=== PATIENT | female | born 1930 | race Caucasian/White ===

== ENCOUNTER → 2017-02-17 | Outpatient (CLI) | payer OTHER, BC ==
[~2017-02-17] MED LIST: GADOBUTROL 10 ML VIAL IVP ONE; IOPAMIDOL (ISOVUE 370) 100 ML BTL IV ONE
== END ==
LOC: FIMAGING 10:32
PROVIDERS: ATTEND Psychiatry & Neurology Neurology
DX: G93.89 Other specified disorders of brain (principal); I61.8 Other nontraumatic intracerebral hemorrhage; R13.10 Dysphagia, unspecified; Z86.73 Personal history of transient ischemic attack (TIA), and cerebral infarction without residual deficits; Z85.05 Personal history of malignant neoplasm of liver
CPT/HCPCS: 70498; 70553; A9585; Q9967

== ENCOUNTER 2017-03-22 17:32 | Inpatient (IN) | payer OTHER, BC ==
--- NOTE | 2017-03-22 18:48 | EDPHY ---
H & P Stated Complaint: pt fell on vacation in [place] th/seen at [facility] n[facility]/pain chestand back - Personal History Current Tetanus/Diphtheria Vaccine: Unsure - Medical/Surgical History Hx Asthma: No Hx Chronic Respiratory Disease: No Hx Diabetes: No Hx Cardiac Disease: No Hx Renal Disease: No Hx Cirrhosis: No Hx Alcoholism: No Hx HIV/AIDS: No Hx Splenectomy or Spleen Trauma: No Other PMH: HTN, glaucoma, balance problems, "liver carcinoid" - Social History Smoking Status: Never smoked Constitutional: Initial Vital Signs Temperature (C) 36.9 C 03/22/17 17:42 Heart Rate 60 03/22/17 17:42 Respiratory Rate 18 03/22/17 17:42 Blood Pressure 161/79 H 03/22/17 17:42 O2 Sat (%) 94 03/22/17 17:42 O2 Delivery Mode Nasal Cannula O2 (L/minute) 2 Allergies/Adverse Reactions: Penicillins Allergy (Unknown, Verified 03/22/17 17:41) Sulfa (Sulfonamide Antibiotics) Allergy (Unknown, Verified 03/22/17 17:41) Home Medications: Medication Instructions Recorded Losartan/Hydrochlorothiazide 1 each PO HS 04/24/14 [Losartan-Hctz 100-25 mg Tab] amLODIPine BESYLATE [Norvasc 5 mg 5 mg PO HS 04/24/14 (*)] Dorzolamide/Timolol [Cosopt (*)] 1 drops EACHEYE BID 08/09/16 Ibuprofen [Motrin (*)] 200 mg PO DAILY PRN 08/09/16 Latanoprost 0.005% [Xalatan 0.005% 1 drops EACHEYE HS 08/09/16 (*)] oxyCODONE IR [Oxycodone Ir (*)] 5 mg PO Q3HRS PRN #30 tab 08/10/16 Medical Decision Making - Diagnostics Imaging Results: Imaging Impressions Chest CT 03/22/17 18:46 Impression: 1. Stable fibrotic bands at the lung bases. 2. Numerous large lesions within the liver similar to prior CT study. 3. Moderate anterior wedge compression fracture superior endplate of T5 and may be acute. There is accentuation of the anterior kyphosis mid thoracic spine. 4. Stable mild compression superior endplate of T12. 5. Partially healed rib fractures on the left. Findings discussed with Jose Lehman MD at 20:01 hour, 03/22/2017. Imaging: Discussed imaging studies w/ call center analyst Radiologist ED Course/Re-evaluation: CHIEF COMPLAINT: Chest/back pain HISTORY OF PRESENT ILLNESS: This patient is an 86 year old female complaining of chest pain secondary to a mechanical fall last , six days ago while in [place]. She slipped and fell last before her daughter's wedding, and struck her chest and possibly her back. She had chest and lower back pain initially, and visited a hospital in [place], [place]. Chest x-ray there was negative for acute processes , and she was discharge home with a clinical impression of contusion to chest wall. Yesterday her chest began to hurt more and she feels her upper back has become significantly painful as well. She denies other trauma or complaints. No shortness of breath, fever, vomiting, or other associated symptoms. REVIEW OF SYSTEMS: A 10 point review of systems was performed and is negative with the exception of the elements mentioned in the history of present illness. PHYSICAL EXAM: General Appearance: Alert, well hydrated, appropriate, and non-toxic appearing. Head: Atraumatic without scalp tenderness or obvious injury Eyes: Pupils equal, round, reactive to light and accommodation, EOMI, no trauma , no injection. Ears: Clear bilaterally, no perforation, normal landmarks Nose: Atraumatic, no rhinorrhea, clear. Throat: There is no erythema or exudates, no lesions, normal tonsils, mucus membranes moist. Neck: Supple, non-tender, no lymphadenopathy. Respiratory: No retractions, no distress, no wheezes, and no accessory muscle use. Lungs are clear to auscultation bilaterally. Cardiovascular: Regular rate and rhythm, no murmurs, rubs, or gallops. Good capillary refill all extremities. Gastrointestinal: Abdomen is soft, non-tender, non-distended, no masses, no rebound, no guarding, no peritoneal signs. Musculoskeletal: Tenderness to mid-thoracic spine area. Tenderness to left chest , left side back. Normal active ROM of all extremities. Neurological: Alert, appropriate, and interactive. Nonfocal neuro exam. Skin: No rashes, good turgor, no nodules on palpation. PAST MEDICAL/SURGICAL HISTORY: Hypertension, glaucoma, balance problems, carcinoid liver SOCIAL HISTORY: . at bedside. DIFFERENTIAL DIAGNOSIS: MEDICAL DECISION MAKING: This patient is an 86 year old female presenting with pain and tenderness to her left side chest and back secondary to a fall last , six days ago. She was evaluated at that time, and chest x-ray was negative for acute processes. Plan to reassess with CT chest with contrast to further evaluate the cause of the patient's discomfort. Plan to administer 0.5mg IV Dilaudid for pain management. CT pending. Administered 0.5mg IV Dilaudid for continued pain management. 20:[address] Hall, radiologist. CT chest shows T5 compression fracture. Consulted with Dr. Back, neurosurgeon. Reassessed patient. She is in quite a bit of pain, and unable to perform her normal functions. I offered admission for pain management and continued management of her T5 fracture. She and her agree with this plan. Dr. Elaine accepts admission to med/surg for pain management, T5 compression fracture. - Data Points Laboratory Results: 03/22/17 18:14 POC Hgb 15.3 gm/dL gm/dL (12.6-16.3) POC Hct 45 % % (38-47) POC Sodium 131 mEq/L L mEq/L (134-144) POC Potassium 3.4 mEq/L mEq/L (3.3-5.0) POC Chloride 91 mEq/L L mEq/L (97-110) POC BUN 15 mg/dL mg/dL (7-23) POC Creatinine 0.6 mg/dL mg/dL (0.6-1.0) POC Glucose 85 mg/dL mg/dL (70-100) Medications Given: Discontinued Medications Hydromorphone HCl (Dilaudid) 0.5 mg IVP EDNOW ONE Stop: 03/22/17 19:05 Last Admin: 03/22/17 19:05 Dose: 0.5 mg Hydromorphone HCl (Dilaudid) 0.5 mg IVP EDNOW ONE Stop: 03/22/17 20:56 Last Admin: 03/22/17 21:00 Dose: 0.5 mg Point of Care Test Results: 03/22/17 18:14 POC Sodium 131 L POC Potassium 3.4 POC Chloride 91 L POC BUN 15 POC Creatinine 0.6 POC Glucose 85 Departure - Departure Disposition: [facility] Inpatient Acute Clinical Impression: Traumatic compression fracture of T5 thoracic vertebra Qualifiers: Encounter type: initial encounter Fracture type: closed Qualified Code(s): S22.050A - Wedge compression fracture of T5-T6 vertebra, initial encounter for closed fracture Condition: Fair Referrals: NONE *PRIMARY CARE P,. [Primary Care Provider] - As per Instructions Report Scribed for: Jose Lehman Report Scribed by: Alissa Starkey Date of Report: 03/22/17 Time of Report: 20:29
[2017-03-22] MEDS ORDERED: IOPAMIDOL (ISOVUE-300) 100 ML BTL ONE (18:53)
[2017-03-22] MEDS ORDERED: HYDROmorphONE/DILAUDID 1 MG/ML SYR ONE (19:00)
[2017-03-22] MEDS ORDERED: HYDROmorphONE/DILAUDID 1 MG/ML SYR IVP ONE ×2 (19:04→20:55)
[2017-03-22] MEDS ORDERED: BISACODYL 10 MG SUPP PR PRN (21:34)
[2017-03-22] MEDS ORDERED: LACTULOSE 20 GM/30 ML UDCUP PO PRN (21:34)
[2017-03-22] MEDS ORDERED: POLYETHYLENE GLYCOL 3350 17 GM PKT PO PRN (21:34)
[2017-03-22] MEDS ORDERED: ONDANSETRON 4 MG/2 ML VIAL IVP PRN (21:34)
[2017-03-22] MEDS ORDERED: ACETAMINOPHEN 325 MG TAB PO PRN (21:34)
[2017-03-22] MEDS ORDERED: MAGNESIUM HYDROXIDE 30 ML UDCUP PO PRN (21:34)
[2017-03-22] MEDS ORDERED: ONDANSETRON DISINTEGRATING 4 MG TAB PO PRN (21:34)
[2017-03-22] MEDS ORDERED: oxyCODONE IR 5 MG TAB PO PRN (21:35)
[2017-03-22] MEDS ORDERED: HYDROmorphONE/DILAUDID 1 MG/ML SYR IVP PRN (21:36)
[2017-03-22] MEDS ORDERED: TEARS/DEXTRAN 70/HYPROMELLOSE 15 ML OPHT.BTL EACHEYE PRN (22:31)
[2017-03-22] MEDS: ACETAMINOPHEN 500 MG TAB PO SCH (22:36)
[2017-03-22] MEDS ORDERED: NS 1,000 ML IV SCH (22:45)
--- NOTE | 2017-03-22 23:08 | GHP ---
[f rep st] HISTORY AND PHYSICAL DATE OF ADMISSION: 03/22/2017 CHIEF COMPLAINT: Back pain, T5 compression fracture. HISTORY OF PRESENT ILLNESS: Patient is an 86-year-old female, who was on vacation in [place] last we ek and suffered a fall when getting up to use the restroom in the middle of the night. She said she swung her feet over and the bed was higher than her normal bed and fell on her back. She instantly had pain in the upper and lower portion of her back, as well as her chest on the left side. She we nt to the emergency room there and had an x-ray done showing no broken ribs. She was prescribed Per cocet, which has been not helping the pain very much. She no longer has lower back pain, but the up per back pain is sharp 10/10, and that is why she came to the emergency room. She has been constipa wojciech for a week. Denies any overt weakness. No incontinence. Does complain of left-sided chest chente n. Does not change with inspiration, but worse with movement. No shortness of breath. REVIEW OF SYSTEMS: I completed a 10-point review of systems, negative except as noted in HPI. PAST MEDICAL HISTORY: 1. 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 2. Left breast biopsy negative for malignancy. 3. Hypertension. 4. Glaucoma. PAST SURGICAL HISTORY: 1. Appendectomy. 2. Left breast biopsy. SOCIAL: Lives at the [facility], is , has an occasional glass of wine with dinner. No tobacco or illicit's. FAMILY HISTORY: Father with emphysema. HOME MEDICATIONS: Blink eye drops, [place] 1 tab q.6 hours p.r.n., Tylenol as needed, Percocet, losar acosta hydrochlorothiazide 100-25 mg tab, Latanoprost eye drops, Cosopt eye drops, Norvasc 5 mg daily. ALLERGIES: Penicillin and sulfa. PHYSICAL EXAMINATION: VITAL SIGNS: Temperature 37.1, blood pressure 140/77, heart rate 50s, respir ations 16, 96% on 2 L. GENERAL: The patient is lying in bed with eye mask over eyes in no acute di stress. HEENT: PERRLA. EOMI. Oropharynx clear. CV: Bradycardic, but regular. No murmurs, gall ops, rubs. LUNGS: Clear to auscultation bilaterally. ABDOMEN: Soft, nontender, nondistended. Po sitive bowel sounds. : No suprapubic tenderness. MUSCULOSKELETAL: 5/5 upper and lower extremit y strength. NEURO: 2 through 12 intact. PSYCH: Alert and oriented x3. CT chest stable fibrotic bands at the lung basis. Numerous large lesions within the liver similar t o prior study. Moderate anterior wedge compression fracture at endplate of T5. There is accentuati on of the anterior kyphosis in the mid thoracic spine. Stable mild compression superior endplate of T12. Partially healed rib fractures on the left. ASSESSMENT AND PLAN: 1. Acute back pain secondary to T5 compression fracture, as well as a small T12 fracture. Pain imp roved with Dilaudid in the emergency room. Will schedule Tylenol and provide oxycodone, as well as a small dose of Dilaudid given age. Neuro surg to evaluate patient in the morning. 2. Will have physical therapy, occupational therapy evaluate. 3. Left-sided chest pain. Does have evidence of a healing rib fracture on the left. Creatinine st able. Can try Toradol. 4. Hypovolemic hyponatremia: The patient has not been eating and drinking much. Will hold her hyd rochlorothiazide and give back a little bit of fluid. 5. Hypertension. Resume Norvasc. Hold hydrochlorothiazide. 6. Mildly low sodium. 7. Glaucoma. Continue home medications. 8. Diet: Regular. 9. Deep venous thrombosis prophylaxis sequential compression devices. 10. Disposition: Patient warrants inpatient admission given acute back pain warranting IV pain con trol, physical therapy and neurosurgical evaluation. /[id number]/MODL
[2017-03-23] MEDS: IBUPROFEN 200 MG TAB PO PRN (04:55)
[2017-03-23 05:30] LABS: ANION GAP 7 mEq/L (8-16); CALCIUM 9.7 mg/dL (8.5-10.4); CARBON DIOXIDE 28 mEq/l (22-31); CHLORIDE 98 mEq/L (97-110); CREATININE 0.7 mg/dL (0.6-1.0); GLOMERULAR FILTRATION RATE > 60; GLUCOSE 85 mg/dL (70-100); SODIUM 133 mEq/L (134-144)
[2017-03-23] MEDS: SENNOSIDES/DOCUSATE SODIUM TAB PO SCH ×2 (08:16→20:48)
[2017-03-23] MEDS: ACETAMINOPHEN 500 MG TAB PO SCH ×3 (08:28→22:03)
[2017-03-23] MEDS: DORZOLAMIDE/TIMOLOL 10 ML OPHT.BTL EACHEYE SCH ×2 (08:29→20:48)
--- NOTE | 2017-03-23 10:09 | HOSPPROG ---
Hospitalist Progress Note Assessment/Plan: Patient is an 86-year-old female who suffered a fall while getting to the restroom. She fell on her back. She instantly had pain in the upper lower portion of her back. A a CT was performed which showed a moderate anterior wedge compression fracture at endplate of T5. There is accentuation of the anterior kyphosis in the mid thoracic spine. She has a stable mild compression superior endplate of T12. Today is my 1st encounter with the patient. Chart reviewed. The plan is for her to get an MRI today for further evaluation. Appreciate neurosurgery * T5 compression fracture/small T12 fracture MRI pending patient is concern about a kyphoplasty/ her neighbor had a bad outcome but may consider it after the MRI is done/ would like to discuss more w neurosurgery * acute back pain due to this likely would not tolerate a brace PT to see if they can mobilize her trial of Lidoderm patches * left-sided chest discomfort may be referral pain from the back * hyponatremia due to hypovolemia Sodium level improved with holding hydrochlorothiazide * hypertension 121/56 * glaucoma eye gtts *Plan : await MRI results/ she and her , Paul, would like to discuss further w neurosurgery Subjective: Lorri is in no pain as long as she's not moving. Objective: Vital Signs Temp Pulse Resp BP Pulse Ox 36.3 C 70 16 121/56 H 99 03/23/17 08:39 03/23/17 08:39 03/23/17 08:39 03/23/17 08:39 03/23/17 08:39 Laboratory Results 03/23/17 04:55 03/22/17 03/23/17 03/24/17 05:59 05:59 05:59 Intake Total 350 Output Total 400 Balance -50 - Physical Exam Constitutional: uncomfortable Eyes: PERRL Ears, Nose, Mouth, Throat: hearing normal Cardiovascular: regular rate and rhythym Respiratory: no respiratory distress Skin: warm Musculoskeletal: muscular tenderness (upper back) Neurologic: AAOx3 Psychiatric: interacting appropriately, not anxious ICD10 Worksheet Patient Problems: Problems Problem Status Onset Traumatic compression fracture of T5 thoracic vertebra Acute Abdominal pain Acute
--- NOTE | 2017-03-23 11:30 | GCON ---
[f rep st] CONSULTATION NEUROSURGERY CONSULTATION NOTE. DATE OF CONSULTATION: 03/23/2017. This patient was seen at [facility] on the 3rd floor by Dr Rousseau at approximately 7 a.m. CHIEF COMPLAINT: Back pain after a fall. HISTORY OF PRESENT ILLNESS: This is an 86-year-old female who presented with worsening back pain yesterday to the [facility] Emergency Room. She was on vacation in [place] last week when she went to go sit on her bed in her hotel room and missed the bed and then fell down onto the floor. She states that she immediately had worsening back pain after this. She denied any leg pain after her fall. She denied any numbness, tingling or weakness in her legs. She denied any loss of bowel or bladder control or saddle anesthesia after the fall. The patient went to the emergency room and did have an x-ray done showing no broken ribs. She was prescribed Percocet which has not been helping the pain very much. The patient states that her lower back pain has dissipated but her upper back pain is sharp and it is severe with any movement. This pain also radiates around to the front of her chest at times. This is why she came to the emergency room yesterday. The patient denies any shortness of breath, any chest pain, any fever or chills. REVIEW OF SYSTEMS: All pertinent positive and negative review of systems were as stated in the HPI. PAST MEDICAL HISTORY: History of carcinoid tumor, history of left breast biopsy negative for malignancy. History of hypertension and glaucoma. PAST SURGICAL HISTORY: Significant for an appendectomy and left breast biopsy. SOCIAL HISTORY: The patient lives at the [facility]. She is . She has an occasional glass of wine. She denies any tobacco use or any other illicit drug use. FAMILY HISTORY: Significant for emphysema in her father. HOME MEDICATIONS: Include [place] 1 tab q.6 hours p.r.n. pain. Tylenol as needed. Percocet, losartan, hydrochlorothiazide, latanoprost eye drops, Cosopt eye drops, Norvasc 5 mg daily. OBJECTIVE: VITAL SIGNS: Blood pressure 141/55, heart rate 56, respiratory rate 16, O2 saturation 94% on room air. Temperature 36.8 degrees Celsius. HEENT: Head is normocephalic, atraumatic. Pupils are equal and react to light and accommodation. Extraocular muscles are intact. There is no facial droop. Patient is conversing appropriately. Speech is fluent. She is alert and oriented x3. NECK: Soft, supple and full range of motion. RESPIRATORY: The patient has normal work of breathing. ABDOMINAL: There is no guarding. NEURO: Cranial nerves 2-12 are grossly intact. Tongue protrudes in midline. Palate rises symmetrically. Uvula is midline. Accessory muscles are 5/5 and equal in strength. Sensation is intact to light touch throughout the normal dermatomal distribution of the body. Motor, bilateral upper extremities are 5/5 and equal in strength in all muscle groups including deltoids, biceps, triceps, wrist extensors, flexors, interossei and audio video technician. It is negative for Ball's. Bilateral lower extremities are 5/5 and equal in strength including all muscle groups including quadriceps, hamstrings, dorsiflexion, plantar flexion, and EHL. Sensation is intact over the normal dermatomal distribution of the body. It is negative for any clonus. EXTREMITIES: There is no cyanosis noted. LABORATORY DATA: Laboratory data taken on 03/22/2017, shows a hemoglobin of 15.3, hematocrit of 45. Laboratory data on 03/23/2017 shows a sodium of 133, potassium 4.0, chloride 98, carbon dioxide 28, anion gap 7, BUN 15, creatinine 0.7. Estimated GFR greater than 60. Glucose 85, calcium 9.7. DIAGNOSTIC IMAGING REVIEW: Chest CT was performed and shows: 1. Stable fibrotic bands at the lung bases. 2. Numerous large lesions within the liver similar to prior CT study. 3. Moderate anterior wedge compression fracture, superior endplate T5, and may be acute. There is an accentuation of the anterior kyphosis in the thoracic spine. 4. Stable mild compression superior endplate of T12. 5. Partially healed rib fractures on the left. Skeletal system on a CT of the chest without contrast shows a new moderate anterior wedge compression fracture superior endplate of T5 with accentuation of anterior kyphosis in the thoracic spine. There was stable mild compression fracture endplate of T12 associated with Schmorl nodes. There is stable, moderate to marked degenerative disk disease at T1-T2, T2-T3 as well as T7-8. Old partially healed fractures are seen associated with the left 4th rib near the costochondral junction and the posterolateral left 9th rib. No acute rib fractures are identified. ASSESSMENT AND PLAN: This is an 86-year-old female who had a fall approximately a week ago while she was on vacation, with increased amount of back pain immediately after this. At this time she is neurologically intact without any signs of weakness, numbness, tingling or pain in her legs. A CT of the chest was performed that showed a possible acute compression fracture at T5. In order to assess the acuity of this fracture we will obtain an MRI of the thoracic spine later today. It was discussed with the patient options of bracing versus surgery versus pain control. Due to her kyphotic nature it is unlikely that the patient will tolerate a brace at this time. She is doing somewhat better in terms of her pain with pain medication currently at the hospital. She is not interested in surgery at this time as she has had some friends with some bad outcomes from cement from kyphoplasties in the past. She was seen by Dr. Rousseau and myself this morning. She was seen by Dr. Rousseau at approximately 7 a.m. At this time we will go forward with the MRI to assess the acuity of the fracture. We will continue to treat her pain control here in the hospital. Should she have her pain controlled, she will most likely need to have placement in a halfway facility or rehab facility for a short period of time and we will get case management to work on this. She will then follow up with our office in approximately 2-3 weeks to see how she is doing. We will look at her MRI later today and if no other acute findings are concerning, Neurosurgery Services will most likely sign off later today with followup in our office in approximately 2-3 weeks. She is to continue working with occupational therapy and physical therapy. Her only restrictions would be to have no extreme bending at the waist and no heavy lifting more than 5 or 10 pounds. /[id number]/MODL MTDD
[2017-03-23] MEDS: amLODIPine BESYLATE 5 MG TAB PO SCH (17:51)
[2017-03-23] MEDS: LIDOCAINE 5% 1 EA PATCH TD SCH (17:52)
[2017-03-23] MEDS ORDERED: LOSARTAN/HCTZ 50/12.5 1 TAB ONE (18:33)
[2017-03-23] MEDS: LOSARTAN/HCTZ 50/12.5 1 TAB PO SCH (18:38)
[2017-03-23] MEDS: LATANOPROST 0.005% 2.5 ML OPHT DROPS EACHEYE SCH (20:49)
[2017-03-23] MEDS: diphenhydrAMINE 25 MG CAP PO PRN (22:03)
[2017-03-23] MEDS: PATCH REMOVAL 1 EA PATCH TD SCH (22:03)
[2017-03-24] MEDS: IBUPROFEN 200 MG TAB PO PRN ×2 (01:16→14:43)
[2017-03-24] MEDS: ACETAMINOPHEN 500 MG TAB PO SCH ×3 (08:40→21:56)
[2017-03-24] MEDS: LIDOCAINE 5% 1 EA PATCH TD SCH (08:41)
[2017-03-24] MEDS: DORZOLAMIDE/TIMOLOL 10 ML OPHT.BTL EACHEYE SCH ×2 (08:42→20:04)
--- NOTE | 2017-03-24 09:00 | NEUSURGPN ---
Assessment/Plan: 86y/o female with T5 compression fracture with thoracic kyphosis. Pain improved this morning -Recommending continuing to optimize pain management -PT/Ot as tolerated. -Discussed possible surgery with daughter and patient, and will hold off at this time -Discussed with Dr. Rousseau. will s/p off at this time. FOllow up in our office in 2-3 weeks. if she develops any new or worsening symptoms she is encouraged to give our office a call. Subjective: back pain improved. Objective: NAD A&Ox3 MAEx4 5/5 and equal in BUE and BLE - Physician Discussed Patient with Dr.: Rousseau Neurosurgery Physical Exam - Vitals, I&O, Labs I and O 03/23/17 03/24/17 03/25/17 05:59 05:59 05:59 Intake Total 350 1200 Output Total 400 2300 Balance -50 -1100 Weight 58.95 kg Intake: Oral (ml) 300 1200 IV Infused (ml) 50 Output: Urine (ml) 400 2300 Toilet 400 2300 Other: Intake Quantity Yes Sufficient Number of Voids 2 Bedside Commode 1 Toilet 1 3 Number of Stools Bedside Commode 2 Toilet 2 Vital Signs Temp Pulse Resp BP Pulse Ox 36.7 C 54 L 18 115/66 99 03/24/17 07:22 03/24/17 07:22 03/24/17 07:22 03/24/17 07:22 03/24/17 07:22 Laboratory Results 03/23/17 04:55 ICD10 Worksheet Patient Problems: Problems Problem Status Onset Traumatic compression fracture of T5 thoracic vertebra Acute Abdominal pain Acute
[2017-03-24] MEDS: SENNOSIDES/DOCUSATE SODIUM TAB PO SCH ×2 (09:18→20:04)
--- NOTE | 2017-03-24 15:25 | HOSPPROG ---
Hospitalist Progress Note Assessment/Plan: 86-year-old female who presented with back pain was found to have a traumatic acute T5 compression fracture. Neurosurgery has seen and discussed the case with the daughter. A decision was made not to pursue a kyphoplasty at this time of pain could be well managed. Her pain was controlled today and due to the high level of the fracture at the T5 level of brace is not helpful or sometimes useful. Patient new to me today - T5 compression fracture. will manage pain control, suggest rehab, and ultimately should be able to return to her of living at the [facility]. - left-sided chest discomfort may be referral pain from the back -hyponatremia due to hypovolemia Sodium level improved with holding hydrochlorothiazide -hypertension 121/56 -glaucoma eye gtts plan: Pain management. No chest back brace will be ordered. Case has been discussed with Neurosurgery. Patient will follow up with Neurosurgery in 2-3 weeks. The hyponatremia is at its baseline. Plan for disposition to a rehab and then ultimate return to the [facility]. Disposition in 1-2 days. Subjective: Reports her pain is improved she is able to stand with a walker and move about go to the bathroom with assistance. She had some complaint of anterior chest pain yesterday would was mostly radiating pain from her back. There has been no diaphoresis shortness of breath nausea or vomiting. Objective: Vital Signs Temp Pulse Resp BP Pulse Ox 36.6 C 66 16 130/47 H 62 L 03/24/17 12:52 03/24/17 08:00 03/24/17 12:52 03/24/17 12:52 03/24/17 12:52 Laboratory Results 03/23/17 04:55 03/23/17 03/24/17 03/25/17 05:59 05:59 05:59 Intake Total 350 1200 Output Total 400 2300 Balance -50 -1100 - Time Spent With Patient Time Spent with Patient: greater than 35 minutes Time Spent with Patient: Greater than 35 minutes spent on this patients care, greater than 50% of time spent counseling, educating, and coordinating care regarding the above mentioned plan. - Pending Discharge Pending Discharge Within 24 Hours: Yes Pending Discharge Date: 03/25/17 Pending Discharge Time: 11:00 - Physical Exam Constitutional: no apparent distress, other ( Tired appearing) Eyes: PERRL Ears, Nose, Mouth, Throat: moist mucous membranes Cardiovascular: regular rate and rhythym, no murmur, rub, or gallop Respiratory: no respiratory distress, no rales or rhonchi, clear to auscultation Gastrointestinal: normoactive bowel sounds, soft, non-tender abdomen Genitourinary: no bladder fullness Skin: warm Musculoskeletal: generalized weakness Neurologic: AAOx3, CN II-XII Intact ICD10 Worksheet Patient Problems: Problems Problem Status Onset Traumatic compression fracture of T5 thoracic vertebra Acute Abdominal pain Acute
[2017-03-24] MEDS: amLODIPine BESYLATE 5 MG TAB PO SCH (16:25)
[2017-03-24] MEDS: LOSARTAN/HCTZ 50/12.5 1 TAB PO SCH (16:27)
[2017-03-24 17:04] VITALS: RESP 18
[2017-03-24] MEDS: LATANOPROST 0.005% 2.5 ML OPHT DROPS EACHEYE SCH (20:04)
[2017-03-24] MEDS: PATCH REMOVAL 1 EA PATCH TD SCH (20:04)
[2017-03-24] MEDS: diphenhydrAMINE 25 MG CAP PO PRN (21:56)
[2017-03-25] MEDS: IBUPROFEN 200 MG TAB PO PRN (03:17)
[2017-03-25 05:20] LABS: ANION GAP 10 mEq/L (8-16); CARBON DIOXIDE 26 mEq/l (22-31); CHLORIDE 96 mEq/L (97-110); CREATININE 0.7 mg/dL (0.6-1.0); GLOMERULAR FILTRATION RATE > 60; GLUCOSE 93 mg/dL (70-100); POTASSIUM 4.2 mEq/L (3.5-5.2); SODIUM 132 mEq/L (134-144)
[2017-03-25 07:48] VITALS: BP 153/79; PULSE 64; TEMP 97.7; O2SAT 94
[2017-03-25] MEDS: SENNOSIDES/DOCUSATE SODIUM TAB PO SCH (08:58)
[2017-03-25] MEDS: LIDOCAINE 5% 1 EA PATCH TD SCH (08:58)
[2017-03-25] MEDS: ACETAMINOPHEN 500 MG TAB PO SCH ×2 (08:58→16:11)
[2017-03-25] MEDS: DORZOLAMIDE/TIMOLOL 10 ML OPHT.BTL EACHEYE SCH (09:57)
--- NOTE | 2017-03-25 14:21 | PDIAF ---
- Diagnosis Code Status: Full Code - Medication Management Discharge Medications: Medications to Continue on Transfer Acetaminophen [Tylenol ES 500 mg (*)] 1,000 mg PO Q6H PRN 03/22/17 [Last Taken Unknown] Blink Eye Drops 1 drop EACHEYE Q4H PRN 03/22/17 [Last Taken 03/22/17] Dorzolamide/Timolol [Cosopt (*)] 1 drops EACHEYE BID 03/22/17 [Last Taken ] Hydrocodone/Acetaminophen [Arnot 5/325 (*)] 1 tab PO Q6H PRN 03/22/17 [Last Taken 03/22/17] Latanoprost 0.005% [Xalatan 0.005% (*)] 1 drops EACHEYE HS 03/22/17 [Last Taken 03/22/17] Losartan/Hydrochlorothiazide [Losartan-Hctz 100-25 mg Tab] 1 each PO DAILY@ [Last Taken 03/22/17] amLODIPine BESYLATE [Norvasc 5 mg (*)] 5 mg PO DAILY@03/22/17 [Last Taken ] oxyCODONE/APAP 5/325 [Percocet 5/325 (*)] 1 tab PO Q4-6PRN PRN 03/22/17 [Last Taken 03/22/17 12:00] Spironolactone [Aldactone 25 MG (*)] 12.5 mg PO SUMOWETHFR 03/24/17 [Last Taken 03/22/17] Lidocaine 5% [Lidoderm 5% Patch (*)] 1 ea TD DAILY #20 patch 03/25/17 [Last Taken Unknown] Sennosides/Docusate Sodium [Senokot-S] 1 - 2 tab PO BID #60 tab 03/25/17 [Last Taken Unknown] oxyCODONE IR [Oxycodone Ir (*)] 5 mg PO Q6H PRN #30 tab 03/25/17 [Last Taken Unknown] Discharge Medications: Refer to the Discharge Home Medication list for PRN reason. - Orders Services needed: Registered Nurse, Certified Gummed Tape Press Operator, Physical Therapy, Occupational Therapy Diet Recommendation: no restrictions on diet Diet Texture: Regular Texture Diet - Follow Up Care Current Providers and Referrals: NONE *PRIMARY CARE P,. [Unknown] - As per Instructions Eduardo Larson MD [Primary Care Provider] - (See Dr Larson if needed) Neptali Rousseau MD [Medical Doctor] - follow up in 2 weeks
[2017-03-25] MEDS: amLODIPine BESYLATE 5 MG TAB PO SCH (16:13)
[2017-03-25] MEDS: LOSARTAN/HCTZ 50/12.5 1 TAB PO SCH (16:13)
--- NOTE | 2017-03-25 23:05 | GDS ---
[f rep st] DISCHARGE SUMMARY DIAGNOSIS: 1. Acute T5 compression fracture. 2. Pain management. 3. Mild hypertension. CHRONIC DIAGNOSES: 1. Glaucoma. 2. Left breast biopsy negative for malignancy remotely. Left breast biopsy negative for malignancy . 3. Has a history of a carcinoid tumor, status post cement statin treatment and radioactive beads. 4. 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 CONSULTATION: Neurosurgery. 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 HOSPITAL COURSE: An 86-year-old female, who sustained during a fall, injury to her back and had manish den mid to upper thoracic back pain. She was admitted for pain management control and noted to have a T5 compression fracture, which was new. Consultation with Neurosurgery indicated that the family decided not to have a kyphoplasty after consultation with the daughter and with the patient. A bra ce is not useful, also, because the fracture is so high in the thoracic region and the brace cannot supply support. Thus, Neurosurgery opted for conservative pain management and a review of the matte r in approximately 2 weeks. She was treated with a slight increase in her usual pain medication and did well. PT and OT actively worked with the lady and she is ambulatory with a walker with some as sistance. She had lived at home with her , but rehabilitation will be appropriate due to the severity of the pain. DISCHARGE MEDICATIONS: New medication is oxycodone IR 5 mg p.o. q.6 hours p.r.n. pain, Senokot-S 1 to 2 tablets p.o. twice daily p.r.n., lidocaine 5% patch to the affected area. Continued medications are Tylenol 1000 mg p.o. q.6 hours p.r.n. pain, Losartan/HCTZ 100/25 mg 1 tabl et daily, Percocet 5/325 mg tablet to be taken 1 q.4 to 6h p.r.n. pain. She will not be receiving N orco. Aldactone 12.5 mg on Monday, Monday, Monday, , Monday. Xalatan eyedrops 0.005% 1 drop in each eye at bedtime, dorzolamide timolol eyedrops 1 drop in each eye twice daily, Blink eyed rops to be used p.r.n., Norvasc 5 mg p.o. daily. PLAN: The patient is transferred to the rehabilitation center at [facility]. She does not req uire home O2. She is ambulatory with a walker and some assistance. Planned followup is with Dr. Akash Santana in approximately 2 weeks. She will also follow up with her PC P, Dr. Eduardo Larson, as needed. Time this discharge required 40 minutes, greater than 50% to certified alcohol drug counselor, coordinate her care for the victor hugo zarate, and discuss treatment options with the patient. /[id number]/MODL
[2017-03-26] MEDS ORDERED: SPIRONOLACTONE 25 MG TAB PO SCH (14:06)
== END 2017-03-25 16:32 | DRG 552 ==
LOC: F3N 21:57
PROVIDERS: ADMIT Internal Medicine; ATTEND Internal Medicine
DX: S22.050A Wedge compression fracture of T5-T6 vertebra, initial encounter for closed fracture (principal); I10 Essential (primary) hypertension; H40.9 Unspecified glaucoma; W01.198A Fall on same level from slipping, tripping and stumbling with subsequent striking against other object, initial encounter; E86.1 Hypovolemia; M51.34 Other intervertebral disc degeneration, thoracic region; Z85.05 Personal history of malignant neoplasm of liver
CPT/HCPCS: 82947-QW; 96374; 97110-GP; 97116-GP; 97162-GP; 97165-GO; G0463-PO; G8978-GP-CJ; G8979-GP-CI; G8987-GO-CK; G8988-GO-CJ; J1170; Q9967

== ENCOUNTER → 2017-04-12 | Outpatient (CLI) | payer OTHER, BC ==
[~2017-04-12] MED LIST changes: -GADOBUTROL 10 ML VIAL IVP ONE; -IOPAMIDOL (ISOVUE 370) 100 ML BTL IV ONE; +IOPAMIDOL (ISOVUE-300) 100 ML BTL ONE
== END ==
LOC: FIMAGING 13:53
PROVIDERS: ATTEND Internal Medicine Hematology & Oncology
DX: C22.9 Malignant neoplasm of liver, not specified as primary or secondary (principal); S42.013A Anterior displaced fracture of sternal end of unspecified clavicle, initial encounter for closed fracture; S22.050A Wedge compression fracture of T5-T6 vertebra, initial encounter for closed fracture; I70.0 Atherosclerosis of aorta
CPT/HCPCS: 71260; 74177; Q9967

== ENCOUNTER → 2017-08-06 | Outpatient (CLI) | payer OTHER, BC | LOC: FIMAGING 10:16 | PROVIDERS: ATTEND Physician Assistant | DX: M99.73 Connective tissue and disc stenosis of intervertebral foramina of lumbar region (principal); M53.84 Other specified dorsopathies, thoracic region; R16.0 Hepatomegaly, not elsewhere classified ==

== ENCOUNTER → 2018-03-21 | Outpatient (CLI) | payer OTHER, BC | LOC: FIMAGING 12:16 | DX: C7B.02 Secondary carcinoid tumors of liver (principal); S22.080D Wedge compression fracture of T11-T12 vertebra, subsequent encounter for fracture with routine healing; M48.061 Spinal stenosis, lumbar region without neurogenic claudication | CPT/HCPCS: 71260; 74177; Q9967; 82565-PO ==

== ENCOUNTER → 2018-11-08 | Outpatient (CLI) | payer OTHER, BC | LOC: FIMAGING 15:16 | PROVIDERS: ATTEND Internal Medicine | DX: E34.0 Carcinoid syndrome (principal); R17 Unspecified jaundice; C78.7 Secondary malignant neoplasm of liver and intrahepatic bile duct; R18.8 Other ascites | CPT/HCPCS: 74177; Q9967 ==

== ENCOUNTER 2018-11-20 23:37 | Inpatient (IN) | payer OTHER, BC ==
--- NOTE | 2018-11-20 23:43 | EDPHY ---
H & P Time Seen by Provider: 11/20/18 23:43 HPI/ROS: HPI CHIEF COMPLAINT: Abdominal pain. 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 States over the past few days she has had intermittent epigastric abdominal pain radiating cross her upper abdomen. Denies any significant chest pain. Denies significant acute back pain. Denies fever cough. Denies vomiting. States she had worsening pain tonight this what prompted her to come to the emergency room. Currently the pain is not present. Past Medical History: Significant medical history for hypertension, glaucoma, carcinoid tumor with mets, T5 compression fracture Past Surgical History: No recent surgery Social History: Denies drugs alcohol tobacco. Resides at the [place]. Family History: Noncontributory ROS REVIEW OF SYSTEMS: 10 Systems were reviewed and negative with the exception of the elements mentioned in the history of present illness. Exam Constitutional triage nursing summary reviewed, vital signs reviewed, awake/ alert. Eyes normal conjunctivae and sclera, EOMI, PERRLA. HENT normal inspection, atraumatic, moist mucus membranes, no epistaxis, neck supple/ no meningismus, no raccoon eyes. Respiratory clear to auscultation bilaterally, normal breath sounds, no respiratory distress, no wheezing. Cardiovascular rate normal, regular rhythm, no murmur, no edema, distal pulses normal. Gastrointestinal mild tender palpation over the right upper quadrant, hepatomegaly, soft, non-tender, no rebound, no guarding, normal bowel sounds, no distension, no pulsatile mass. Genitourinary no CVA tenderness. Musculoskeletal no midline vertebral tenderness, full range of motion, no calf swelling, no tenderness of extremities, no meningismus, good pulses, neurovascularly intact. Skin pink, warm, & dry, no rash, skin atraumatic. Neurologic awake, alert and oriented x 3, AAOx3, moves all 4 extremities equally, motor intact, sensory intact, CN II-XII intact, normal cerebellar, normal vision, normal speech. Psychiatric normal mood/affect. Heme/Lymph/Immune no lymphadenopathy. Differential Diagnosis: Differential diagnosis includes but is not limited to and in no particular order: Bowel obstruction, appendicitis, gallbladder disease, diverticulitis, colitis, enteritis, perforated viscus, gastritis, GERD , esophagitis, urinary tract infection, pyelonephritis, kidney stones Medical Decision Making: Plan for this patient IV establishment IV fluid bolus , basic labs, and re-evaluate. Re-evaluation: EKG interpretation by me on record in [facility] [employer] system. Impression time of EKG 004: Sinus rhythm rate of 56, LVH, T-wave flattening inferior leads otherwise no signs of acute ischemia. Ultrasound of the right upper quadrant faxed me by direct Radiology 12:47 a.m. This shows multiple hepatic masses with cholelithiasis mild gallbladder wall thickening is noted and acute cholecystitis not excluded clinical correlation is advised, doc could be visualize but not measured due to pancreatic stent Gallbladder wall cholelithiasis is identified with mild wall thickening of 4 mm no pericholecystic fluid Given patient's right upper quadrant abdominal pain on exam and ultrasound findings will consult surgery for concern of cholecystitis. 0125AM: I have consulted Dr. Mcgee with surgery for potential cholecystitis. He will plan on evaluating the patient consult. admit To medicine service for further evaluation. 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" - Social History Smoking Status: Never smoked Constitutional: Initial Vital Signs Temperature (C) 36.2 C 11/20/18 23:47 Heart Rate 61 11/20/18 23:47 Respiratory Rate 18 11/20/18 23:47 Blood Pressure 151/80 H 11/20/18 23:47 O2 Sat (%) 94 11/20/18 23:47 Allergies/Adverse Reactions: Penicillins Allergy (Unknown, Verified 11/20/18 23:47) Sulfa (Sulfonamide Antibiotics) Allergy (Unknown, Verified 11/20/18 23:47) Home Medications: Medication Instructions Recorded Blink Eye Drops 1 drop EACHEYE Q4H PRN 03/22/17 Dorzolamide/Timolol [Cosopt (*)] 1 drops EACHEYE BID 03/22/17 Latanoprost 0.005% [Xalatan 0.005% 1 drops EACHEYE HS 03/22/17 (*)] Losartan/Hydrochlorothiazide 1 each PO DAILY@03/22/17 [Losartan-Hctz 100-25 mg Tab] amLODIPine BESYLATE [Norvasc 5 mg 5 mg PO DAILY@03/22/17 (*)] oxyCODONE/APAP 5325 [Percocet 1 tab PO Q4-6PRN PRN 03/22/17 5/325 (*)] Spironolactone [Aldactone 25 MG 12.5 mg PO SUMOWETHFR 03/24/17 (*)] Lidocaine 5% [Lidoderm 5% Patch] 1 ea TD DAILY #20 patch 03/25/17 Sennosides/Docusate Sodium 1 - 2 tab PO BID #60 tab 03/25/17 [Senokot-S] Medical Decision Making - Data Points Laboratory Results: Laboratory Results 11/21/18 00:49 11/21/18 00:00 11/21/18 11/21/18 11/21/18 00:49 00:06 00:00 WBC REJ RBC REJ Hgb REJ Hct REJ MCV REJ MCH REJ MCHC REJ RDW REJ Plt Count REJ MPV REJ Neut % (Auto) REJ Lymph % (Auto) REJ [place] % (Auto) REJ Eos % (Auto) REJ Baso % (Auto) REJ Nucleat RBC Rel Count REJ Absolute Neuts (auto) REJ Absolute Lymphs (auto) REJ Absolute Monos (auto) REJ Absolute Eos (auto) REJ Absolute Basos (auto) REJ Absolute Nucleated RBC REJ Immature Gran % REJ Immature Gran # REJ PT INR APTT VBG Lactic Acid Sodium 134 mEq/L L mEq/L (135-145) Potassium 5.6 mEq/L H mEq/L (3.5-5.2) Chloride 103 mEq/L mEq/L (97-110) Carbon Dioxide 23 mEq/l mEq/l (22-31) Anion Gap 8 mEq/L mEq/L (6-14) BUN 17 mg/dL mg/dL (7-23) Creatinine 0.6 mg/dL mg/dL (0.6-1.0) Estimated GFR > 60 Glucose 98 mg/dL mg/dL (70-100) Calcium 7.9 mg/dL L mg/dL (8.5-10.4) Total Bilirubin 6.5 mg/dL H mg/dL (0.1-1.4) Conjugated Bilirubin 5.0 mg/dL H mg/dL (0.0-0.5) Unconjugated Bilirubin 1.5 mg/dL H mg/dL (0.0-1.1) AST 128 IU/L H IU/L (14-46) ALT 52 IU/L IU/L (9-52) Alkaline Phosphatase 530 IU/L H IU/L (38-126) POC Troponin I 0.01 ng/mL ng/mL (0.00-0.08) Total Protein 6.7 g/dL g/dL (6.3-8.2) Albumin 3.2 g/dL L g/dL (3.5-5.0) Lipase 74 IU/L IU/L (23-300) Specimen Hemolysis 187 11/21/18 11/21/18 11/21/18 00:00 00:00 00:00 WBC REJ RBC REJ Hgb REJ Hct REJ MCV REJ MCH REJ MCHC REJ RDW REJ Plt Count REJ MPV REJ Neut % (Auto) REJ Lymph % (Auto) REJ [place] % (Auto) REJ Eos % (Auto) REJ Baso % (Auto) REJ Nucleat RBC Rel Count REJ Absolute Neuts (auto) REJ Absolute Lymphs (auto) REJ Absolute Monos (auto) REJ Absolute Eos (auto) REJ Absolute Basos (auto) REJ Absolute Nucleated RBC REJ Immature Gran % REJ Immature Gran # REJ PT 16.6 SEC H SEC (12.0-15.0) INR 1.41 H (0.83-1.16) APTT 22.9 SEC L SEC (23.0-38.0) VBG Lactic Acid 1.8 mmol/L mmol/L (0.7-2.1) Sodium Potassium Chloride Carbon Dioxide Anion Gap BUN Creatinine Estimated GFR Glucose Calcium Total Bilirubin Conjugated Bilirubin Unconjugated Bilirubin AST ALT Alkaline Phosphatase POC Troponin I Total Protein Albumin Lipase Specimen Hemolysis Point of Care Test Results: Chemistry 11/21/18 00:06 POC Troponin I 0.01 ng/mL ng/mL (0.00-0.08) Departure - Departure Disposition: [facility] Inpatient Acute Clinical Impression: Abdominal pain Condition: Fair Referrals: Patient,NotPresent [Primary Care Provider] - As per Instructions
[2018-11-21 00:19] LABS: INR 1.41 (0.83-1.16); PROTIME(PATIENT) 16.6 SEC (12.0-15.0)
[2018-11-21 01:34] LABS: PLATELET COUNT 271 10^3/uL (150-400)
[2018-11-21] MEDS ORDERED: ONDANSETRON DISINTEGRATING 4 MG TAB PO PRN (02:04)
[2018-11-21] MEDS ORDERED: ONDANSETRON 4 MG/2 ML VIAL IVP PRN (02:04)
--- NOTE | 2018-11-21 02:54 | PDGENHP ---
History and Physical - Chief Complaint Abdominal pain - History of Present Illness 88 yo F w/ hx of carcinoid malignancy and hepatic infiltration presents with abdominal pain. She had an ERCP with biliary stent placement by Dr. José on at [facility]. This was performed for treatment of malignant biliary obstruction. Since this procedure she has had intermittent abdominal pain. She saw her PCP Dr. Larson for the same on 11/19 for the same. At that time Maalox was recommended. The patient tells me that the pain tonight was worse than usual and she could not sleep so she came in the ED for evaluation. The pain has resolved without intervention by the time of my evaluation. She has a hard time characterizing the pain but does state that sometimes it radiates up her esophagus, suggestive of reflux. Evaluation in the ED notable for cholestatic LFTs and US notable for questionable cholecystitis. However, she is not displaying any infectious signs of symptoms at the moment. She is being admitted for observation. Case discussed with ED physician Dr. Davison; records reviewed and summarized above. History Information - Allergies/Home Medication List Allergies/Adverse Reactions: Penicillins Allergy (Unknown, Verified 11/20/18 23:47) Sulfa (Sulfonamide Antibiotics) Allergy (Unknown, Verified 11/20/18 23:47) Home Medications: Blink Eye Drops 1 drop EACHEYE Q4H PRN 03/22/17 [Last Taken 03/22/17] Dorzolamide/Timolol [Cosopt (*)] 1 drops EACHEYE BID 03/22/17 [Last Taken ] Latanoprost 0.005% [Xalatan 0.005% (*)] 1 drops EACHEYE HS 03/22/17 [Last Taken 03/22/17] Losartan/Hydrochlorothiazide [Losartan-Hctz 100-25 mg Tab] 1 each PO DAILY@ [Last Taken 03/22/17] amLODIPine BESYLATE [Norvasc 5 mg (*)] 5 mg PO DAILY@03/22/17 [Last Taken ] oxyCODONE/APAP 5/325 [Percocet 5/325 (*)] 1 tab PO Q4-6PRN PRN 03/22/17 [Last Taken 03/22/17 12:00] Spironolactone [Aldactone 25 MG (*)] 12.5 mg PO SUMOWETHFR 03/24/17 [Last Taken 03/22/17] I have personally reviewed and updated: family history, medical history - Past Medical History hypertension Additional medical history: Carcinoid tumor located in the liver status post somastatin therapy as well as radioactive beads, past history of hematuria without identifiable cause - Surgical History Additional surgical history: ERCP with biliary stent placement 11/14/18 - Family History Additional family history: no family history of kidney stones, no recent sick family contacts - Social History Smoking Status: Never smoked Additional social history: normally independent in her ADLs, lives at [place] Review of Systems Review of Systems: ROS: 10pt was reviewed & negative except for what was stated in HPI & below Physical Exam Physical Exam: Temp Pulse Resp BP Pulse Ox 36.2 C 61 18 151/80 H 94 11/20/18 23:47 11/20/18 23:47 11/20/18 23:47 11/20/18 23:47 11/20/18 23:47 Constitutional: not in pain, chronically ill appearing Eyes: PERRL, EOMI Ears, Nose, Mouth, Throat: moist mucous membranes, no oral mucosal ulcers Cardiovascular: regular rate and rhythym, systolic murmur, edema (1+ b/l SHAVON) Respiratory: no respiratory distress, clear to auscultation Gastrointestinal: normoactive bowel sounds, tenderness (Mild, diffuse), No guarding, No rebound, No distension Skin: warm, normal color Neurologic: AAOx3, CN II-XII Intact Psychiatric: interacting appropriately, not anxious Lab Data & Imaging Review 11/21/18 01:25 11/21/18 00:00 WBC 8.82 10^3/uL (3.80-9.50) 11/21/18 01:25 RBC 4.02 10^6/uL (4.18-5.33) L 11/21/18 01:25 Hgb 13.5 g/dL (12.6-16.3) 11/21/18 01:25 Hct 39.0 % (38.0-47.0) 11/21/18 01:25 MCV 97.0 fL (81.5-99.8) 11/21/18 01:25 MCH 33.6 pg (27.9-34.1) 11/21/18 01:25 MCHC 34.6 g/dL (32.4-36.7) 11/21/18 01:25 RDW 15.9 % (11.5-15.2) H 11/21/18 01:25 Plt Count 271 10^3/uL (150-400) 11/21/18 01:25 MPV 10.7 fL (8.7-11.7) 11/21/18 01:25 Neut % (Auto) 66.3 % (39.3-74.2) 11/21/18 01:25 Lymph % (Auto) 14.7 % (15.0-45.0) L 11/21/18 01:25 [place] % (Auto) 15.3 % (4.5-13.0) H 11/21/18 01:25 Eos % (Auto) 1.9 % (0.6-7.6) 11/21/18 01:25 Baso % (Auto) 0.9 % (0.3-1.7) 11/21/18 01:25 Nucleat RBC Rel Count 0.0 % (0.0-0.2) 11/21/18 01:25 Absolute Neuts (auto) 5.84 10^3/uL (1.70-6.50) 11/21/18 01:25 Absolute Lymphs (auto) 1.30 10^3/uL (1.00-3.00) 11/21/18 01:25 Absolute Monos (auto) 1.35 10^3/uL (0.30-0.80) H 11/21/18 01:25 Absolute Eos (auto) 0.17 10^3/uL (0.03-0.40) 11/21/18 01:25 Absolute Basos (auto) 0.08 10^3/uL (0.02-0.10) 11/21/18 01:25 Absolute Nucleated RBC 0.00 10^3/uL (0-0.01) 11/21/18 01:25 Immature Gran % 0.9 % (0.0-1.1) 11/21/18 01:25 Immature Gran # 0.08 10^3/uL (0.00-0.10) 11/21/18 01:25 PT 16.6 SEC (12.0-15.0) H 11/21/18 00:00 INR 1.41 (0.83-1.16) H 11/21/18 00:00 APTT 22.9 SEC (23.0-38.0) L 11/21/18 00:00 VBG Lactic Acid 1.8 mmol/L (0.7-2.1) 11/21/18 00:00 Sodium 134 mEq/L (135-145) L 11/21/18 00:00 Potassium 5.6 mEq/L (3.5-5.2) H 11/21/18 00:00 Chloride 103 mEq/L (97-110) 11/21/18 00:00 Carbon Dioxide 23 mEq/l (22-31) 11/21/18 00:00 Anion Gap 8 mEq/L (6-14) 11/21/18 00:00 BUN 17 mg/dL (7-23) 11/21/18 00:00 Creatinine 0.6 mg/dL (0.6-1.0) 11/21/18 00:00 Estimated GFR > 60 11/21/18 00:00 Glucose 98 mg/dL (70-100) 11/21/18 00:00 Calcium 7.9 mg/dL (8.5-10.4) L 11/21/18 00:00 Total Bilirubin 6.5 mg/dL (0.1-1.4) H 11/21/18 00:00 Conjugated Bilirubin 5.0 mg/dL (0.0-0.5) H 11/21/18 00:00 Unconjugated Bilirubin 1.5 mg/dL (0.0-1.1) H 11/21/18 00:00 AST 128 IU/L (14-46) H 11/21/18 00:00 ALT 52 IU/L (9-52) 11/21/18 00:00 Alkaline Phosphatase 530 IU/L (38-126) H 11/21/18 00:00 POC Troponin I 0.01 ng/mL (0.00-0.08) 11/21/18 00:06 Total Protein 6.7 g/dL (6.3-8.2) 11/21/18 00:00 Albumin 3.2 g/dL (3.5-5.0) L 11/21/18 00:00 Lipase 74 IU/L (23-300) 11/21/18 00:00 Specimen Hemolysis 187 11/21/18 00:00 Assessment & Plan Assessment: 88 yo F w/ carcinoid tumor of the liver and known biliary obstruction with recent stent placement presents with abdominal pain. Plan: 1. RUQ and epi-gastric abdominal pain - Patient states this has been present intermittently since her ERCP on 11/14 with frequent radiation up her esophagus, suggestive of GERD. It's also likely her advancing hepatic malignancy is playing a role. She saw her PCP for the same on 11/19 and Maalox was recommended. The pain resolved in the ED without intervention. Her work-up is notable for questionable cholecystitis and cholestatic liver enzymes. Her lipase is normal. She is displaying 0/4 SIRS criteria currently. - Admit for observation - Will start daily PPI - GI consult in the morning 2. Abnormal LFTs - LFTs elevated in a cholestatic pattern. She had biliary stent placed at [facility] by Dr. José on 11/14. Total bilirubin on 11/15 after the procedure was 4.9. Total bilirubin is 6.5 on admission today with direct component of 5.0. - Monitor LFTs - MRCP may be helpful if rising, will defer to GI noting recent ERCP 3. Questionable cholecystitis - Mild GB wall thickening at 4 mm, no pericholecystic fluid noted. - Will observe off of antibiotics noting 0/4 SIRS criteria - General surgery consulted in the ED 4. Carcinoid tumor - Carcinoid tumor located in the liver status post somatostatin therapy as well as radioactive beads. Diet - NPO, mIVF Code - DNR Ppx - SCDs Dispo - Admit under observation status
[2018-11-21] MEDS: NS 1,000 ML IV SCH ×2 (03:56→14:26)
[2018-11-21 06:16] LABS: PLATELET COUNT 286 10^3/uL (150-400)
--- NOTE | 2018-11-21 08:45 | GCON ---
[f rep st] CONSULTATION DATE OF CONSULTATION: 11/21/2018 CHIEF COMPLAINT: Abdominal pain. HISTORY OF PRESENT ILLNESS: This is an 88-year-old female who presented to the emergency department with acute on chronic abdominal pain. Briefly, she was recently seen at an outside hospital where a biliary stent was placed for elevated liver function tests and likely obstruction secondary to this. At any rate, she was subsequently discharged home back to the nursing facility. She presents stating that she has had increasing right upper quadrant pain which is worse with food as well as activity. She denies having any fevers or chills, and other than the pain, she feels well. PAST MEDICAL HISTORY: Significant for hypertension, glaucoma, carcinoid tumor with metastatic lesions to the liver, and a T5 compression fracture. PAST SURGICAL HISTORY: Recent biliary stent placement for biliary obstruction. SOCIAL HISTORY: Lives at a care home facility. Denies any illicit drug use. FAMILY HISTORY: Noncontributory. CURRENT MEDICATIONS: Reviewed. REVIEW OF SYSTEMS: A full 10-point review was performed. PHYSICAL EXAMINATION: VITAL SIGNS: Temperature is 36.4, blood pressure is 150/ 75, heart rate 60, and she is 92% on room air. CONSTITUTIONAL: She is in no acute distress and is stable. EYES: Her pupils are equal, round, and reactive to light and accommodation. Her extraocular movements are intact. EARS, NOSE, MOUTH, THROAT: She has moist mucous membranes. Her hearing is normal. She has normal dentition. CARDIOVASCULAR: She has a regular rate and rhythm without any murmurs. RESPIRATORY: She has no respiratory distress, rales, or rhonchi. GI: She has normoactive bowel sounds. Her abdomen is soft, nondistended, nontender. SKIN: Warm. Normal color. No rashes or abrasions. MUSCULOSKELETAL: Full strength. No tenderness. Normal joint range of motion. NEUROLOGIC: She is alert and oriented x3. Her cranial nerves 2 to 12 are intact. She has no weakness or numbness. PSYCH: She is interacting appropriately. She is not anxious. LYMPH/HEME/IMMUNOLOGIC: She has no cervical, groin, or supraclavicular lymphadenopathy appreciated. LABORATORY DATA: White blood cell count is normal at 7.2, H and H are stable at 14 and 41, platelets are 286. Coags are normal with an INR of 1.4. Chemistry shows an elevated total bilirubin at 6, with an elevated conjugated fraction of 4.4, with an unconjugated fraction of 1.6. AST is elevated at 93, AST is elevated at 60, alkaline phosphatase is elevated at 502. Lipase is normal at 74. IMAGING: Includes an abdominal CT scan, as well as an abdominal ultrasound. These images were personally reviewed. The CT scan shows multiple partially necrotic hepatic metastases, the largest of which is showing mass effect on the left lobe, hepatomegaly. Abdominal ultrasound shows cholelithiasis with again multiple hepatic masses. The gallbladder wall is mildly thickened. ASSESSMENT AND PLAN: An 88-year-old female with metastatic carcinoid to the liver causing secondary biliary compression in an 88-year-old female with abdominal pain. I was asked to evaluate the patient whether or not I feel this represents cholecystitis. I have a very low threshold to feel like this is cholecystitis. It is more than likely from her biliary backup and necrotic liver metastases. My thoughts would be to ensure that the stent is functioning properly, likely Gastroenterology consult to interrogate this and likely more imaging to make sure that it is functioning appropriately as her bilirubin is still somewhat high. She has a normal white blood cell count, and her story is not really consistent with a cholecystitis picture. In addition, I did discuss surgery with the patient, and she would be against having surgery should it be required. We will continue to follow with you. /[id number]/MODL MTDD
[2018-11-21] MEDS: PANTOPRAZOLE SODIUM 40 MG TAB PO SCH (10:29)
--- NOTE | 2018-11-21 14:36 | GCON ---
[f rep st] PROCEDURE NOTE REASON FOR CONSULTATION: Jaundice and abdominal pain. HISTORY OF PRESENT ILLNESS: The patient is an 88-year-old female with metastatic carcinoid with hepatic infiltration, who was admitted to the hospital with increasing severe (moderate to severe) dull epigastric abdominal pain with radiation into back, both postprandial and at rest. She does have a history of biliary stenting performed by Dr. José on 11/14/2018, at [facility]. In spite of this stenting, her bilirubin has continued to rise. She was admitted to observation today for further evaluation of this pain. Chest x-ray revealed blunting of the costophrenic angles and small pleural effusions and mild cardiomegaly. Right upper quadrant ultrasound revealed cholelithiasis with equivocal thickening of the gallbladder wall. The common bile duct contained a biliary stent. There was no intrahepatic biliary dilatation. There was heterogeneous hepatic attenuation consistent with previously documented metastatic disease to the liver. MEDICATIONS: (Prior to admission) amlodipine 5 mg p.o. daily, losartan/ hydrochlorothiazide 100-25 mg p.o. daily, eye drops daily, Percocet 5/325 p.o. q.4 hours p.r.n. abdominal pain. Spironolactone 12.5 mg p.o. daily. ALLERGIC: She is allergic to penicillin and sulfa. PAST MEDICAL HISTORY: Significant for carcinoid tumor located in the liver with treatment with somatostatin therapy and radioactive beads in the past. Also, essential hypertension. PAST SURGICAL HISTORY: ERCP and biliary stent placement on 11/14/2018. FAMILY HISTORY: Negative for GI malignancies or peptic ulcer disease. SOCIAL HISTORY: Nonsmoker. Does not drink alcohol. Lives independently at [place] with her . REVIEW OF SYSTEMS: Negative for comprehensive review of systems other than as noted in the HPI. EXAMINATION: VITAL SIGNS: Temperature 36.6, pulse 69, regular; blood pressure 158/70; respiratory rate 12; O2 saturation 91% on room air. GENERAL: A cachectic-looking woman in mild distress in bed. INTEGUMENT: Jaundiced. HEENT : Head is atraumatic, normocephalic. Pupils are equal, round and react to light. EOMs are intact. Sclerae are anicteric. Nares are patent. Mucous membranes are moist. Dentition is fair. NECK: Supple. Trachea midline. LYMPHATICS: No cervical or axillary adenopathy palpated. PULMONARY: Lungs are clear to percussion and auscultation. CARDIOVASCULAR: Regular rhythm and rate. Normal S1, S2 without murmur. Peripheral pulses slightly decreased bilaterally. No pedal edema. GASTROINTESTINAL: Abdomen is supple. Positive bowel sounds. There is tenderness and fullness in the right upper quadrant to deep palpation. No fluid wave noted. EXTREMITIES: without deformities. NEURO : The patient was alert and oriented x3. There are no focal neurologic deficits. LABS: White count 7.27, hemoglobin 14.1, hematocrit 41.7, platelets 286,000. Pro-time 16.6, INR 1.41, PTT 22.9. Electrolytes significant for sodium 134, potassium 5.6, BUN was 17, creatinine 0.6, total bilirubin 6.5, conjugated 5.0, unconjugated 1.5. AST 128, ALT 52, ALP 530, lipase 74. Chest x-ray and right upper quadrant ultrasound as noted above. ASSESSMENT: 1. Epigastric abdominal pain. The patient with known carcinoid infiltrating the liver, now with increased elevation of bilirubin and LFTs, rule out obstruction of recently placed biliary stent, albeit this could all be related to increased tumor burden with increased bilirubin secondary to same. 2. Hypertension by history. 3. Cholelithiasis; doubt symptomatic. RECOMMENDATIONS: 1. Full-liquid diet today. 2. N.p.o. after midnight. 3. Evaluate with EGD and ERCP with injection of biliary stents in the morning. /[id number]/MODL MTDD
[2018-11-21] MEDS: CIPROFLOXACIN 500 MG TAB PO SCH ×2 (15:21→22:01)
[2018-11-21] MEDS: AMYLASE PO PRN (15:22)
[2018-11-21] MEDS: PROTEASE PO PRN (15:22)
[2018-11-21] MEDS: LIPASE PO PRN (15:22)
--- NOTE | 2018-11-21 15:48 | ASMTCMCOM ---
CM Note CM Note Notes: Met with Pt, Paras and daughter Saige and chart reviewed for discharge planning. Lorri is a 88yr old admitted with Abd pain and a history of carcinoid malignancy and hepatic infiltration, HTN. Pt had an ERCP with stent placement on 11/[address] [facility] for treatment of malignant biliary obstruction. Pt also reported pain in her esophagus. GI Consult today. Pt is a DNR. Pt lives at the [facility] and her Paras lives in their home. Daughter and would like her to go to a SNF if needed but Pt wants to go home. CM requested PT/OT to to eval and OT recommends SNF. Discussed with family & Pt if there is a preference should she needs a SNF. They were given a Blue Book with SNF to choose from. CM available if needs arise. PLAN: Likely SNF Date Signed: 11/21/2018 03:45 PM Electronically Signed By:Liberty Camarena
--- NOTE | 2018-11-21 16:27 | HOSPPROG ---
Hospitalist Progress Note Assessment/Plan: 88 yo F w/ carcinoid tumor of the liver and known biliary obstruction with recent stent placement presents with abdominal pain. #RUQ and Epigastric abd pain, unclear if pain from mets vs other etiology #s/p 2 stents for biliary obstruction placed on 11/[address] José at outside hospital #Abnormal LFT's #Carcinoid with mets to liver #Pedal Edema, unknown if hx of CHF #Hx of HTN #weakness and deconditioning Plan: -no e/o of cholecystitis per surgery -GI to see. Likely needs endoscopy, ERCP, currently NPO -appears dehydrated, cont IVF. no diuretics today -SCD's -PT/OT -Change to inpatient Subjective: no cp or sob. no current abd pain. Objective: Vital Signs Temp Pulse Resp BP Pulse Ox 36.7 C 69 16 168/76 H 94 11/21/18 15:36 11/21/18 15:36 11/21/18 15:36 11/21/18 15:36 11/21/18 15:36 Laboratory Results 11/21/18 06:05 11/21/18 06:05 11/20/18 11/21/18 11/22/18 05:59 05:59 05:59 Output Total 200 Balance -200 PT 16.6 SEC (12.0-15.0) H 11/21/18 00:00 INR 1.41 (0.83-1.16) H 11/21/18 00:00 - Physical Exam Constitutional: no apparent distress, chronically ill appearing Eyes: PERRL, EOMI Ears, Nose, Mouth, Throat: moist mucous membranes, hearing normal Cardiovascular: regular rate and rhythym, edema Respiratory: no respiratory distress, no rales or rhonchi, clear to auscultation Gastrointestinal: normoactive bowel sounds, soft, non-tender abdomen, No distension Skin: warm Neurologic: AAOx3 Psychiatric: interacting appropriately, not anxious, not encephalopathic Lymph, Heme, Immunologic: No petechiae ICD10 Worksheet Patient Problems: Problems Problem Status Onset Abdominal pain Acute Traumatic compression fracture of T5 thoracic vertebra Acute
--- NOTE | 2018-11-21 18:53 | PDMN ---
Medical Necessity Medical necessity: Change to IP, as of 11/21/18, per & MCG M-05; los >2 mn for ongoing management of RUQ & epigastric abdominal pain of unclear etiology s/ p 2 stents for bilary obstruction w/weakness & deconditioning; requiring monitoring, GI consult w/EGD & ERCP, NPO status, IVFs & therapies; comorbid carcinoid w/mets to liver, advanced age
[2018-11-21] MEDS: LIPASE PO SCH (19:20)
[2018-11-21] MEDS: PROTEASE PO SCH (19:20)
[2018-11-21] MEDS: AMYLASE PO SCH (19:20)
[2018-11-21] MEDS: TIMOLOL 0.5% 15 ML OPHT.BTL EACHEYE SCH (21:50)
[2018-11-21] MEDS: LATANOPROST 0.005% 2.5 ML OPHT DROPS EACHEYE SCH (21:50)
[2018-11-21] MEDS: ACETAMINOPHEN 325 MG TAB PO PRN (21:57)
[2018-11-21] MEDS: CIPROFLOXACIN 100 MG/ML 100ML BTL PO SCH (21:59)
[2018-11-22] MEDS: ACETAMINOPHEN 325 MG TAB PO PRN ×2 (01:06→05:48)
[2018-11-22] MEDS ORDERED: hydrALAZINE 25 MG TAB PO PRN (04:05)
[2018-11-22] MEDS: NS 1,000 ML IV SCH (04:26)
[2018-11-22] MEDS: PROTEASE PO SCH ×3 (07:52→17:53)
[2018-11-22] MEDS: LIPASE PO SCH ×3 (07:52→17:53)
[2018-11-22] MEDS: AMYLASE PO SCH ×3 (07:52→17:53)
[2018-11-22] MEDS: LOSARTAN POTASSIUM 50 MG TAB PO SCH (08:03)
[2018-11-22] MEDS ORDERED: INDOMETHACIN 50 MG SUPP PR ONE (08:18)
[2018-11-22] MEDS ORDERED: IOTHALAMATE MEG (CONRAY) 50 ML VIAL IV ONE (08:18)
--- NOTE | 2018-11-22 08:47 | PDANEPAE ---
ANE History of Present Illness carcinoid with mets to liver and biliary obstruction ANE Past Medical History - Cardiovascular History Hx Hypertension: Yes Hx Arrhythmias: No Hx Chest Pain: No Hx Coronary Artery / Peripheral Vascular Disease: No Hx CHF / Valvular Disease: No Hx Palpitations: No - Pulmonary History Hx COPD: No Hx Asthma/Reactive Airway Disease: No Hx Recent Upper Respiratory Infection: No Hx Oxygen in Use at Home: No Hx Sleep Apnea: Yes Sleep Apnea Screening Result - Last Documented: Positive - Endocrine History Hx Diabetes: No Hypothyroid: No Hyperthyroid: No Obesity: no - Renal History Hx Renal Disorders: No - Liver History Hx Hepatic Disorders: Yes Hepatic History Comment: carcinoid with mets to liver and biliary obstruction - Neurological & Psychiatric Hx Hx Neurological and Psychiatric Disorders: No - Cancer History Hx Cancer: Yes Cancer History Comment: carcinoid with mets to liver and biliary obstruction - Congenital Disorder History Hx Congenital Disorders: No - Chronic Pain History Chronic Pain: No - Surgical History Prior Surgeries: ERCP 11/14 ANE Review of Systems Review of systems is: negative Review of Systems: ANE Patient History - Allergies Allergies/Adverse Reactions: Penicillins Allergy (Unknown, Verified 11/20/18 23:47) Sulfa (Sulfonamide Antibiotics) Allergy (Unknown, Verified 11/20/18 23:47) - Home Medications Home medications: home medication list seen and reviewed Home Medications: Latanoprost 0.005% [Xalatan 0.005% (*)] 1 drops EACHEYE HS 03/22/17 [Last Taken 11/19/18] amLODIPine BESYLATE [Norvasc 5 mg (*)] 5 mg PO DAILY 03/22/17 [Last Taken ] Spironolactone [Aldactone 25 MG (*)] 12.5 mg PO SUMOWETHFR 03/24/17 [Last Taken 11/20/18] Ciprofloxacin [Cipro] 500 mg PO BID 11/21/18 [Last Taken 11/20/18 09:00] Furosemide [Lasix 20 MG (*)] 20 mg PO DAILY 11/21/18 [Last Taken 11/20/18] Lipase/Protease/Amylase [Mckinley Guzman 8,000 Unit Capsule] 1 each PO AD PRN [Last Taken Unknown] Lipase/Protease/Amylase [Mckinley Guzman 8,000 Units Capsule] 2 each PO TIDMEAL 11/21 [Last Taken 11/20/18 12:00] Losartan Potassium 100 mg PO DAILY 11/21/18 [Last Taken 11/20/18] Timolol 0.5% [TIMOPTIC 0.5% (*)] 1 drops EACHEYE BID 11/21/18 [Last Taken 09:00] - NPO status NPO Status: no food or drink >8 hours NPO Since - Liquids (Date): 11/22/18 NPO Since - Liquids (Time): 00:00 NPO Since - Solids (Date): 11/21/18 NPO Since - Solids (Time): 21:00 - Anes Hx Anes Hx: no prior problems - Smoking Hx Smoking Status: Never smoked - Family Anes Hx Family Anes Hx: none ANE Labs/Vital Signs - Labs Result Diagrams: 11/21/18 06:05 11/22/18 04:30 - Vital Signs Blood Pressure: 206/73 Heart Rate: 57 Respiratory Rate: 14 O2 Sat (%): 94 Height: 152.4 cm Weight: 54.431 kg ANE Physical Exam - Airway Neck exam: FROM Mallampati Score: Class 2 Mouth exam: normal dental/mouth exam - Pulmonary Pulmonary: no respiratory distress, clear to auscultation - Cardiovascular Cardiovascular: regular rate and rhythym, no murmur, rub, or gallop - ASA Status ASA Status: IV ANE Anesthesia Plan Anesthesia Plan: general endotracheal anesthesia
[2018-11-22] MEDS ORDERED: PROPOFOL 200 MG/20 ML VIAL ONE (08:51)
[2018-11-22] MEDS ORDERED: LIDOCAINE 2% 2 ML INJ ONE ×2 (08:51)
[2018-11-22] MEDS ORDERED: SUCCINYLCHOLINE CHLORIDE 200 MG/10 ML SYR IVP ONE (08:51)
[2018-11-22] MEDS ORDERED: LR 1,000 ML IV ONE (08:56)
[2018-11-22] MEDS ORDERED: amLODIPine BESYLATE 5 MG TAB PO SCH (09:00)
[2018-11-22] MEDS ORDERED: hydrALAZINE 20 MG/ML VIAL IVP PRN (09:03)
--- NOTE | 2018-11-22 09:40 | GIREPORT ---
[facility] Surgical Services - Endoscopy Department Patient Name: Lorri Fan Procedure Date: 11/22/2018 9:13 AM Patient Type: Inpatient Attending MD/ ER Physician: Pedro Pickens MD Procedure: Upper GI endoscopy Indications: Epigastric abdominal pain Providers: Pedro Pickens MD Medicines: General Anesthesia Complications: No immediate complications. Description of Procedure: After obtaining informed consent, the endoscope was passed under direct vision. Throughout the procedure, the patient's blood pressure, pulse, and oxygen saturations were monitored continuously. The Endoscope was intro duced through the mouth, and advanced to the second part of duodenum. The [facility] er GI endoscopy was accomplished without difficulty. The patient tolerated th e procedure well. Findings: One cratered esophageal ulcer with no bleeding and no stigmata of recen t bleeding was found in the mid esophagus. The lesion was 8 mm in largest dimension. Biopsies were taken with a cold forceps for histology. The entire examined stomach was normal. Two previously placed plastic biliary stents were seen in the ampulla. Estimated Blood Loss: Estimated blood loss: none. Post Op Diagnosis: - Non-bleeding esophageal ulcer. Biopsied. - Normal stomach. - Plastic biliary stents in the duodenum. Recommendation: - Perform an ERCP today. - Await pathology results. Attending Participation: I personally performed the entire procedure. Pedro Pickens MD Pedro Pickens MD 11/22/2018 9:39:24 AM This report has been signed electronicallyPedro Pickens MD Number of Addenda: 0 Note Initiated On: 11/22/2018 9:13 AM [email or web address]
[2018-11-22] MEDS ORDERED: NALOXONE HCL 0.4 MG/ML INJ IVP PRN (10:05)
--- NOTE | 2018-11-22 10:05 | POSTANESTH ---
Post Anesthetic Evaluation Cardiovascular Status: Normal, Stable Respiratory Status: Normal, Stable Level of Consciousness/Mental Status: Can Participate in Eval Pain Control: Adequate, Prn Tx Ordered Nausea/Vomiting Control: Adequate, Prn Tx Ordered Complications Possibly Related to Anesthesia: None Noted
--- NOTE | 2018-11-22 10:13 | GIREPORT ---
[facility] Surgical Services - Endoscopy Department Patient Name: Lorri Fan Procedure Date: 11/22/2018 8:20 AM Patient Type: Inpatient Attending MD/ ER Physician: Pedro Pickens MD Procedure: ERCP Indications: Abdominal pain of suspected biliary origin, Epigastric abdominal pain, Elevated liver enzymes, Question of clogged biliary stents. Providers: Pedro Pickens MD Medicines: General Anesthesia Complications: No immediate complications. Description of Procedure: After obtaining informed consent, the scope was passed under direct vis ion. Throughout the procedure, the patient's blood pressure, pulse, and oxyg en saturations were monitored continuously. The Duodenalscope was introduc ed through the mouth, and advanced to the duodenum and used to inject cont rast into the bile duct. The ERCP was accomplished without difficulty. The patient tolerated the procedure well. Findings: Two plastic stents originating in the biliary tree were emerging from t he major papilla with existing papillotomy. The stents were visibly patent . A total of 20 mL of dilute ionic contrast was injected into the biliary t ree with a balloon tipped biliary catheter. The bile duct was deeply cannul ated with the tapered-tip cannula. Contrast was injected. (I personally interpreted the bile duct images and took permanent films). There was b risk flow of contrast through the bile ducts. Image quality was excellent. Contrast extended to the main bile duct. Contrast extended to the dista l hepatic ducts only. Good drainage of bile was seen through the two bili johnson stents and the washoe common bile duct. Estimated Blood Loss: Estimated blood loss: none. Post Op Diagnosis: - Two visibly patent stents from the biliary tree were seen in the jeannine r papilla. Good flow of contrast into common bile duct and distal hepatic ducts however no flow more proximal consistent with multiple proximal hepatic duct obstructions secondary to tumor burden within the liver. Recommendation: - Return patient to [facility] for [facility] care. - No need to replace indwelling biliary catheters as they are non-obstr ucted. - The findings and recommendations were discussed with the patient. Attending Participation: I personally performed the entire procedure. I have reviewed and interpreted the results of the above documented diagnostic study. Pedro Pickens MD Pedro Pickens MD 11/22/2018 10:13:41 AM This report has been signed electronicallyPedro Pickens MD Number of Addenda: 0 Note Initiated On: 11/22/2018 8:20 AM [email or web address]
--- NOTE | 2018-11-22 10:51 | SOAPPROG ---
SO[facility] Progress Note Assessment/Plan: Assessment: 1. Mid esophageal ulcer; ? malignant (biopsied). This may be the cause of patient's epigastric pain. 2. No evidence of obstruction of recently placed biliary stents on ERCP today. Raising LFT's likely secondary to overwhelming tumor burden in liver. Plan: I had a lengthy discussion with patient's daughter Saige after today's procedure. She stated that the family needs some clarity on what can be expected as meaningful treatment for her mother's terminal condition. She is requesting a care conference with Hospice, Hospitalist, and Oncologist(if possible) so that the family can have their questions answered and can formulate a unified plan going forward. Pedro Pickens MD 11/22/18 10:43 Objective: Vital Signs Temp Pulse Resp BP Pulse Ox 36.5 C 57 L 12 142/65 H 93 11/22/18 10:10 11/22/18 08:47 11/22/18 10:21 11/22/18 10:21 11/22/18 10:21 Laboratory Results 11/22/18 04:30 11/21/18 11/22/18 11/23/18 05:59 05:59 05:59 Intake Total 2721 400 Output Total 250 200 Balance 2471 200 PT 16.6 SEC (12.0-15.0) H 11/21/18 00:00 INR 1.41 (0.83-1.16) H 11/21/18 00:00 ICD10 Worksheet Patient Problems: Problems Problem Status Onset Abdominal pain Acute Traumatic compression fracture of T5 thoracic vertebra Acute
[2018-11-22] MEDS: CIPROFLOXACIN 100 MG/ML 100ML BTL PO SCH ×2 (11:21→20:44)
[2018-11-22] MEDS: PANTOPRAZOLE SODIUM 40 MG TAB PO SCH (11:21)
[2018-11-22] MEDS: TIMOLOL 0.5% 15 ML OPHT.BTL EACHEYE SCH ×2 (11:21→20:44)
[2018-11-22] MEDS ORDERED: amLODIPine BESYLATE 5 MG TAB PO ONE (15:00)
--- NOTE | 2018-11-22 15:04 | HOSPPROG ---
Hospitalist Progress Note Assessment/Plan: 88 yo F w/ carcinoid tumor of the liver and recent biliary obstruction with recent stent placement presents with abdominal pain. She had ERCP today and stents appear to be working OK. There is no e/o of biliary obstruction. The LFT's elevation and elevated INR may likely be due to tumor burden She was admitted with abd pain, but has had minimal abd pain on 11/21 and none reported today #RUQ and Epigastric abd pain, unclear if pain from mets vs other etiology -no pain reported today #s/p 2 stents for biliary obstruction placed on 11/[address] 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 -will increase Amlodipine to 10mg Daily -cont Hydralazine PRN #weakness and deconditioning #Malnutrition #Dehydration on admission, better now #Esophageal Ulcer, ?Malignancy. Biopsied and path pending Plan: -no e/o of cholecystitis per surgery -She had ERCP today and stents appear to be working OK. There is no e/o of biliary obstruction. The LFT's elevation and elevated INR may likely be due to tumor burden -She was admitted with abd pain, but has had minimal abd pain on 11/21 and none reported today -advancing diet -I met with the Family and Palliative care today. The pt's overall prognosis is likely poor. Dr. Lopez will consult tomorrow -will start chemical DVT proph -Dietary consult -PT/OT -Change to inpatient -Dispo: she may be a good candidate for hospice. She lives in independent living but will need a higher level of care Subjective: sleepy. no cp or sob. no abd pain Objective: Vital Signs Temp Pulse Resp BP Pulse Ox 36.3 C 56 L 16 151/65 H 94 11/22/18 13:02 11/22/18 13:02 11/22/18 13:02 11/22/18 13:02 11/22/18 13:02 Laboratory Results 11/22/18 04:30 11/21/18 11/22/18 11/23/18 05:59 05:59 05:59 Intake Total 2721 400 Output Total 250 200 Balance 2471 200 PT 16.6 SEC (12.0-15.0) H 11/21/18 00:00 INR 1.41 (0.83-1.16) H 11/21/18 00:00 - Physical Exam Constitutional: no apparent distress, chronically ill appearing Eyes: PERRL, EOMI Ears, Nose, Mouth, Throat: moist mucous membranes, hearing normal Cardiovascular: regular rate and rhythym, edema Respiratory: no respiratory distress, reduced air movement Gastrointestinal: normoactive bowel sounds, soft, non-tender abdomen Skin: warm Musculoskeletal: generalized weakness Neurologic: AAOx3 Psychiatric: interacting appropriately, not anxious, not encephalopathic Lymph, Heme, Immunologic: No petechiae ICD10 Worksheet Patient Problems: Problems Problem Status Onset Abdominal pain Acute Traumatic compression fracture of T5 thoracic vertebra Acute
--- NOTE | 2018-11-22 15:09 | ASMTCMCOM ---
CM Note CM Note Notes: Met with Pt and family. Pt continues to require IV Hydralazine for elevated B/p and went for an Endo procedure today. Daughter requested & sent Referrals to [facility], [facility] and [facility]. Saige Fan [facility] ([phone]) requests that we NOT talk to her mother about SNF's unless she is present. Daughter Saige present when we discussed options and Referrals sent. Palliative Brianda in to meet with Pt and Family this afternoon. Daughter and Paras feel in would be best if Lorri went to a SNF, but Pt disagrees. CM available if needs arise. PLAN: SNF TBD Date Signed: 11/22/2018 03:08 PM Electronically Signed By:Liberty Camarena
--- NOTE | 2018-11-22 15:27 | SOAPPROG ---
TONY Progress Note Assessment/Plan: Assessment: 88yo F c RUQ pain, metastatic carcinoid liver mets - pain is improved today - ERCP and EGD yesterday: new lesion in esophagus, poss malignant. stent is open. Pain and LFT bump likely 2/2 tumor burden - palliative care to meet with patient, Dr Lopez to see patient from heme/onc standpoint - will sing off, please call if there is anything I can offer from GS standpoint Plan: 11/22/18 15:25 Subjective: pain improved today Objective: Vital Signs Temp Pulse Resp BP Pulse Ox 36.3 C 56 L 16 151/65 H 94 11/22/18 13:02 11/22/18 13:02 11/22/18 13:02 11/22/18 13:02 11/22/18 13:02 Laboratory Results 11/22/18 04:30 11/21/18 11/22/18 11/23/18 05:59 05:59 05:59 Intake Total 2721 400 Output Total 250 200 Balance 2471 200 PT 16.6 SEC (12.0-15.0) H 11/21/18 00:00 INR 1.41 (0.83-1.16) H 11/21/18 00:00 ICD10 Worksheet Patient Problems: Problems Problem Status Onset Abdominal pain Acute Traumatic compression fracture of T5 thoracic vertebra Acute
[2018-11-22] MEDS: ENOXAPARIN 40 MG/0.4 ML SYR SC SCH (15:36)
--- NOTE | 2018-11-22 16:41 | ECHO ---
[email or web address] [address] [address] Main: [phone] Echocardiography Examination Transthoracic Name: ANTHONY GOMEZ MR#: [id number] Study Date: 11/22/2018 Study Time: 02:45 PM Date of : 1930 Age: 88 year(s) Height: 152.4 cm (60 in.) Weight: 54.43 kg (120 lb.) BSA: 1.5 m2 Gender: Female Examination: Echo Contrast: Image Quality: Good Rhythm: Heart Rate: BP: / Indication: LE Edema Procedure Staff Referring Physician: Tie Tape Machine Operator: Akil Avila RDCS Reading Physician: Nahun Jimenez MD Requesting Provider: Ordering Physician: Nithin Do Indication: LE Edema Measurements Chambers AV/MV Label Value Normal Value Label Value Normal Value IVSd, 2D 0.8 cm (0.6cm - 1.1cm) AR Defect Area (ERO) 0.1 cm2 LVDd, 2D 3.9 cm (3.9cm - 5.3cm) AR PISA Radius 0.5 cm LVDs, 2D 2.4 cm (2.1cm - 4cm) AR Reg. Fraction 55 % LVEF, 2D 71 % (54% - 74%) AR Reg. Volume 29 ml LVOT PGmax 3 mmHg AR Vena contracta 0.3 cm LVOT PGmean 1 mmHg AR Vmax 4.96 m/s LVOT Vmax 0.81 m/s (0.7m/s - 1.1m/s) AR VTI 291 cm LVOT Vmean 0.57 m/s AV PGmax 6 mmHg LVOTd 1.9 cm (1.8cm - 2cm) AV PGmean 3 mmHg LVPWd, 2D 0.9 cm AV Vmax 1.19 m/s RVDd, 2D 2.8 cm (1.9cm - 3.8cm) XIAO (continuity eq. 1.9 cm2 LA Volume, BP 55 ml (22ml - 52ml) Vmax) LADs, 2D 3.4 cm (2.7cm - 3.8cm) XIAO D (continuity eq. 2 cm2 LAESV index, BP 36.7 ml/m2 VTI) Additional Vessels MV A Vmax 0.74 m/s Label Value Normal Value MV E Vmax 0.32 m/s AoRoot, MM 3.3 cm (2.2cm - 3.7cm) MV E/A 0.43 MV PGmax 4 mmHg MV PGmean 1 mmHg MV VTI 32 cm Patient: ANTHONY GOMEZ Study Date: 11/22/2018 Page 1 of 2 02:45 PM MVA D (continuity eq.) 1.7 cm2 TV/PV Label Value Normal Value RA Pressure 5 mmHg RVSP 31 mmHg TR Pmax 26 mmHg TR Vmax 2.54 m/s Conclusions Overall Conclusions: No pericardial effusion. Preserved left ventricular systolic function. Progressive valvular heart disease with moderate aortic regurgitation and severe tricuspid regurgitation. Right ventricular systolic pressure is 31 mm of mercury. Findings Left Ventricle: Left ventricle is normal in size. Normal global systolic left ventricular function. Left ventricle wall thickness is normal. There are no regional wall motion abnormalities. Cannot determine LAP and Diastolic Dysfunction Grade. Right Ventricle: Normal size right ventricle. The RV function appears grossly normal. Left Atrium: The left atrium is mildly dilated. Right Atrium: The right atrium is normal in size. Mitral Valve: Trivial mitral regurgitation. No mitral valve stenosis. There is mild mitral thickening. Aortic Valve: Moderate aortic regurgitation is present. There is no aortic stenosis. The aortic valve is trileaflet. Tricuspid Valve: The tricuspid leaflets do not appear to coapt completely. Moderate to severe tricuspid regurgitation. Right Ventricular systolic pressure is measured at 31 mmHg. Pulmonary artery pressure normal. Pulmonic Valve: Pulmonic leaflets are structurally normal. Aorta: The aorta is normal. The aortic root size in M-mode measures 3.3 cm. Aorta Measurements AoRoot, MM is 3.3 cm. Pericardium: No pericardial effusion. Exam Details Procedure Ordered: Echo Procedure Status: Routine study Image Quality: Good Facility Location: Cardiac Echo 1 (No Signature Object) Patient: ANTHONY GOMEZ Study Date: 11/22/2018 Page 2 of 2 02:45 PM [id number]
[2018-11-22] MEDS: LATANOPROST 0.005% 2.5 ML OPHT DROPS EACHEYE SCH (20:44)
[2018-11-22] MEDS: MELATONIN 3 MG TAB PO SCH (21:04)
[2018-11-23 04:14] LABS: PLATELET COUNT 290 10^3/uL (150-400)
[2018-11-23] MEDS: AMYLASE PO SCH ×3 (08:13→17:46)
[2018-11-23] MEDS: LIPASE PO SCH ×3 (08:13→17:46)
[2018-11-23] MEDS: PROTEASE PO SCH ×3 (08:13→17:46)
[2018-11-23] MEDS: LOSARTAN POTASSIUM 50 MG TAB PO SCH (09:49)
[2018-11-23] MEDS: PANTOPRAZOLE SODIUM 40 MG TAB PO SCH (09:49)
--- NOTE | 2018-11-23 11:24 | SOAPPROG ---
SOAP Progress Note Assessment/Plan: Assessment: 1. Mid esophageal ulcer; ? malignant (biopsied). This may be the cause of patient's epigastric pain. 2. No evidence of obstruction of recently placed biliary stents on ERCP today. Raising LFT's likely secondary to overwhelming tumor burden in liver. Plan: I had a lengthy discussion with patient's daughter Saige, son, , patient and Dr Lopez. Family now has clarity on what can be expected as meaningful treatment for her mother's terminal condition. She will be discharged tomorrow with F/U with her oncologist. Dr José will contact family in 2 months about possible exchange of biliary stents if still reasonable to do so at that time. I will sign off case today, (50% of 30 minute encounter today spent in counseling and education of patient and family as well as coordination of care with oncologist; Adis Lopez MD). 10:50- Pedro Pickens MD 10:50-11:20 11/23/18 11:24 Objective: Vital Signs Temp Pulse Resp BP Pulse Ox 36.3 C 67 16 141/73 H 93 11/23/18 09:17 11/23/18 09:17 11/23/18 09:17 11/23/18 09:49 11/23/18 09:17 Laboratory Results 11/23/18 04:00 11/23/18 04:00 11/22/18 11/23/18 11/24/18 05:59 05:59 05:59 Intake Total 2721 750 Output Total 250 550 150 Balance 2471 200 -150 PT 16.6 SEC (12.0-15.0) H 11/21/18 00:00 INR 1.41 (0.83-1.16) H 11/21/18 00:00 ICD10 Worksheet Patient Problems: Problems Problem Status Onset Abdominal pain Acute Traumatic compression fracture of T5 thoracic vertebra Acute
[2018-11-23] MEDS: SUCRALFATE 1 GM/10 ML UDCUP PO SCH ×3 (11:38→20:59)
[2018-11-23] MEDS: TIMOLOL 0.5% 15 ML OPHT.BTL EACHEYE SCH ×2 (11:42→20:59)
[2018-11-23] MEDS: ENOXAPARIN 40 MG/0.4 ML SYR SC SCH (11:42)
--- NOTE | 2018-11-23 11:42 | GCON ---
[f rep st] CONSULTATION I was asked to evaluate this 88-year-old female with a long history of carcinoid tumor who presents with biliary obstruction, weight loss, and esophageal pain. To review, this patient was diagnosed with both carcinoid tumor and carcinoid syndrome in 2000. She was treated for a long time with Sandostatin and eventually had a Y90 radio embolization of the liver in 2014. She was switched from Sandostatin to lanreotide in 2016, because of progression in the liver. Recently, she has had some jaundice. She had a couple of stents placed by Dr. José. She has had some problems with diarrhea, which may or may not have been helped by some pancreatic supplements. She was admitted to [facility] complaining of some pain with swallowing. An EGD by Dr. Pickens showed an ulcer in the mid esophagus, biopsies are pending. Currently, she complains of significant fatigue. She has [id number] abdominal discomfort. PAST MEDICAL HISTORY: Significant for hypertension. SURGERIES: Include ERCP with stent placement. REVIEW OF SYSTEMS: Negative, except as discussed above for 10 systems. PHYSICAL EXAMINATION: GENERAL: She is an elderly female, appearing chronically ill, but quite alert. VITAL SIGNS: Blood pressure 141/73. She is afebrile. HEENT: She is slightly icteric. LYMPHATIC: I detect no cervical or supraclavicular adenopathy. LUNGS: Clear. CARDIAC: A loud systolic murmur. ABDOMEN: In a sitting position shows normal bowel sounds, sensation of hepatomegaly. EXTREMITIES: Trace edema. NEUROLOGIC: Exam is nonfocal. LABORATORY/IMAGING: White count is 7.59, hemoglobin 13.6, hematocrit 40.8, platelets are 290,000. Chemistry panel shows a bilirubin of 5.7, AST of 105, ALT of 57, alkaline phosphatase of 527. There has not been much change in her bilirubin since the biliary stents have been placed. Abdominal imaging, includes an ultrasound of the liver, which shows cholelithiasis and significant hepatic metastatic disease. A recent CT scan performed 11/08/2018, shows a multiple partially necrotic hepatic metastasis. They are most prominent in the right lobe. The largest in the anterior segment the right lobe measures 7.5 x 6.9 cm. There are additional lesions. When I reviewed this study, I would estimate at 70 to 80% of her liver is replaced by tumor. 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 She has an ulcer in the mid esophagus of unclear cause. My general assessment is that she is having progressive carcinoid tumor and that is the root of most of her symptoms. I think that therapeutic options are really fairly limited. There is the outside possibility that if the tumor is gallium avid, she could be considered for radioisotope therapy, but I think her age, her performance status and extent of disease would tend to make this a low likelihood of success therapy, although she could certainly pursue it with her primary oncologist, Dr. Ding. We should review the pathology from her esophageal biopsies. I wonder if some Carafate might be helpful. She is already on a proton pump inhibitor. I think family is considering rehab versus hospice care , and we spent some time discussing that. /[id number]/MODL MTDD
[2018-11-23] MEDS: LIPASE 12,000/AMYLASE/PROTEASE (CREON) 1 CAP PO SCH ×2 (11:43→17:46)
--- NOTE | 2018-11-23 15:21 | ASMTCMCOM ---
CM Note CM Note Notes: Met with patient's daughter Saige ) who is very involved with care decisions. Family is hopeful to get patient into [facility]. Shanelle from [facility] in to see patient and family regarding plan of care given patient's increasing weakness and symptom burden. Evaluations per PT and OT recommend a SNF as patient was living at independent living facility. Family and patient also met with oncology who reviewed plan of care and limited treatment options at this time. Family is agreeable to consider [facility] at this time as a bridge to [facility] . [facility] is able to accept. Patient likely ready to discharge tomorrow, 11/24/2018. Plan: To SNF Date Signed: 11/23/2018 03:20 PM Electronically Signed By:Jocelynn Avila RN
--- NOTE | 2018-11-23 16:26 | HOSPPROG ---
Hospitalist Progress Note Assessment/Plan: 88 yo F w/ carcinoid tumor of the liver and recent biliary obstruction with recent stent placement presents with abdominal pain. She had ERCP today and stents appear to be working OK. There is no e/o of biliary obstruction. The LFT's elevation and elevated INR may likely be due to tumor burden She was admitted with abd pain, but has had minimal abd pain on 11/22 and none reported today #RUQ and Epigastric abd pain, unclear if pain from mets vs other etiology -no pain reported today #s/p 2 stents for biliary obstruction placed on 11/[address] 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 -will increase Amlodipine to 10mg Daily -cont Hydralazine PRN #weakness and deconditioning #Malnutrition #Dehydration on admission, better now #Esophageal Ulcer, ?Malignancy. Biopsied and path pending Plan: -no e/o of cholecystitis per surgery -She had ERCP yesterdat and stents appear to be working OK. There is no e/o of biliary obstruction. The LFT's elevation and elevated INR may likely be due to tumor burden -She was admitted with abd pain, but has had minimal abd pain on exam -advancing diet -I met with the Family and Palliative care today. The pt's overall prognosis is likely poor. -will start chemical DVT proph -Dietary consult -PT/OT -remain inpatient -Dispo:Likely transfer to tomorrow. Objective: Vital Signs Temp Pulse Resp BP Pulse Ox 36.6 C 69 16 158/71 H 94 11/23/18 11:23 11/23/18 11:23 11/23/18 11:23 11/23/18 11:23 11/23/18 11:23 Microbiology 11/23/18 12:10 Gastrointestinal Tract Panel (PCR) - Final Stool No Organism Detected By Pcr Laboratory Results 11/23/18 04:00 11/23/18 04:00 11/22/18 11/23/18 11/24/18 05:59 05:59 05:59 Intake Total 2721 750 Output Total 250 550 150 Balance 2471 200 -150 PT 16.6 SEC (12.0-15.0) H 11/21/18 00:00 INR 1.41 (0.83-1.16) H 11/21/18 00:00 - Physical Exam Constitutional: no apparent distress Eyes: PERRL Ears, Nose, Mouth, Throat: moist mucous membranes Cardiovascular: regular rate and rhythym Respiratory: no respiratory distress Gastrointestinal: normoactive bowel sounds Genitourinary: no bladder fullness Skin: warm, normal color Musculoskeletal: generalized weakness Neurologic: AAOx3 Psychiatric: interacting appropriately Lymph, Heme, Immunologic: no cervical LAD ICD10 Worksheet Patient Problems: Problems Problem Status Onset Abdominal pain Acute Traumatic compression fracture of T5 thoracic vertebra Acute
[2018-11-23] MEDS: MELATONIN 3 MG TAB PO SCH (20:59)
[2018-11-23] MEDS: LATANOPROST 0.005% 2.5 ML OPHT DROPS EACHEYE SCH (20:59)
[2018-11-24] MEDS: ACETAMINOPHEN 325 MG TAB PO PRN (04:34)
[2018-11-24 07:10] VITALS: BP 158/74
[2018-11-24] MEDS: PROTEASE PO PRN ×2 (08:30→10:08)
[2018-11-24] MEDS: AMYLASE PO PRN ×2 (08:30→10:08)
[2018-11-24] MEDS: LIPASE PO PRN ×2 (08:30→10:08)
[2018-11-24] MEDS: LOSARTAN POTASSIUM 50 MG TAB PO SCH (08:32)
[2018-11-24] MEDS: PANTOPRAZOLE SODIUM 40 MG TAB PO SCH (08:32)
[2018-11-24] MEDS: SUCRALFATE 1 GM/10 ML UDCUP PO SCH ×2 (08:34→11:33)
[2018-11-24] MEDS: ENOXAPARIN 40 MG/0.4 ML SYR SC SCH (08:34)
[2018-11-24] MEDS: TIMOLOL 0.5% 15 ML OPHT.BTL EACHEYE SCH (10:07)
[2018-11-24] MEDS: LIPASE 12,000/AMYLASE/PROTEASE (CREON) 1 CAP PO SCH ×2 (10:09→12:11)
[2018-11-24] MEDS: AMYLASE PO SCH ×2 (10:13→11:33)
[2018-11-24] MEDS: LIPASE PO SCH ×2 (10:13→11:33)
[2018-11-24] MEDS: PROTEASE PO SCH ×2 (10:13→11:33)
--- NOTE | 2018-11-24 12:50 | PDIAF ---
- Diagnosis Diagnosis: carcinoid tumor Code Status: Do Not Resuscitate - Medication Management Discharge Medications: electronically signed and located in the Home Medication List. - Orders Services needed: Physical Therapy, Occupational Therapy Diet Recommendation: no restrictions on diet Diet Texture: Dysphagia 2 - Mechanically Altered - Chopped, Ground, Thin Liquids , Meds Whole w/Liquids Additional Instructions: Activity: as tolerated F/U: -With Oncology in 1-2 weeks. Please call [facility] to make appt with Dr. Lopez Rehab per accepting facility All diuretics have been discontinued No further antibiotics as course has been completed - Follow Up Care Current Providers and Referrals: Patient,NotPresent [Unknown] - As per Instructions
--- NOTE | 2018-11-24 12:55 | PDDCSUM ---
Discharge Summary Discharge Summary: 88 yo F w/ carcinoid tumor of the liver and recent biliary obstruction with recent stent placement presents with abdominal pain. She had ERCP and stents appear to be working OK. There is no e/o of biliary obstruction. The LFT's elevation and elevated INR may likely be due to tumor burden She was admitted with abd pain, but has had minimal abd pain at this time Esophageal biopsies will need to be followed She will have f/u with Oncology She is discharging to [facility] for rehab Hospice has been considered and ultimately may be the direction the pt and family follow. At this time, a decision has not been finalized She had e/o dehydration on admission and diuretics have been stopped. She has slight pedal edema since admission and it is unchanged. She has no e/o pulmonary edema and has been stable w/o diuretics for several days. DDx: #RUQ and Epigastric abd pain, unclear if pain from mets vs other etiology #s/p 2 stents for biliary obstruction placed on 11/[address] 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 There is e/o of Moderate aortic regurgitation and severe tricuspid regurgitation #HTN and HTN urgency earlier -Amlodipine increased to 10mg Daily. BP better now #weakness and deconditioning #Malnutrition #Dehydration on admission, resolved #Esophageal Ulcer, ?Malignancy. Biopsied and path pending Exam: NAD AAOX3 RRR CTA B S/NT/ND MEDS: SEE MED REC TOTAL TIME SPENT ON D/C IS 40 MINS
--- NOTE | 2018-11-24 13:07 | ASMTLACE ---
LACE Length of stay for Answers: 3 days current admission Comorbidities - select Answers: Any tumor (including all that apply lymphoma or leukemia) Other Notes: HTN # of Emergency department Answers: 1-2 visits in the last 6 months Score: 7 Date Signed: 11/24/2018 01:06 PM Electronically Signed By:Jocelynn Avila RN
--- NOTE | 2018-11-24 13:09 | ASMTDCNOTE ---
Case Management Discharge Discharge Order Complete? Answers: Yes Patient to Obtain Answers: Other Notes: [facility] Medications Transportation Arranged Answers: [facility] Stretcher Case Management Transport Answers: Yes Form Complete Faxed Final Orders Answers: Yes Agency/Facility Transfer Answers: Yes Report Printed & Faxed to Receiving Agency Family Notified Answers: Yes Discharge Comments Notes: Medically cleared fr dc to SNF today via stretcher. 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 CM available should other needs arise. Date Signed: 11/24/2018 01:08 PM Electronically Signed By:Jocelynn Avila RN
--- NOTE | 2018-11-24 16:37 | ASDISCHSUM ---
Discharge Information Plan Status:SNF Medically Cleared to Leave:11/24/2018 Discharge Date:11/24/2018 02:50 PM CM D/C [facility] ADT D/C Disposition:[facility] Projected Discharge Date:11/23/2018 11:00 AM Transportation at D/C: Discharge Delay Reason: Follow-Up Date:11/23/2018 11:00 AM Discharge Slot: Final Diagnosis: Placement Information Referral Type:Palliative Care Referral ID:[id number] Provider Name: Address 1: Phone Number: Address 2: Fax Number: City: Selection Factors: State: Referral Type:*Snf/SNF Referral ID:[id number] Provider Name:[facility] Address 1:[address] Address 2: City:[place] Selection Factors: State:[place] Patient Contact Information Contact Name:AILYN Relationship: Address:[address] City:[place] Alternate Phone: State/Zip Code:[place] [address] Email: Financial Information Financial Class:Medicare Primary Plan Desc:MEDICARE INPATIENT Primary Plan Number:[id number] Secondary Plan Desc:[employer] FEDERAL PLAN Secondary Plan Number:[id number] Assessment Information LACE LACE Length of stay for Answers: 3 days current admission Comorbidities - select Answers: Any tumor (including all that apply lymphoma or leukemia) Other Notes: HTN # of Emergency department Answers: 1-2 visits in the last 6 months Score: 7 Date Signed: 11/24/2018 01:06 PM Electronically Signed By:Jocelynn Avila RN [facility] CM Progress Note CM Note CM Note Notes: Met with Pt, Paras and daughter Saige and chart reviewed for discharge planning. Lorri is a 88yr old admitted with Abd pain and a history of carcinoid malignancy and hepatic infiltration, HTN. Pt had an ERCP with stent placement on 11/14 at [facility] for treatment of malignant biliary obstruction. Pt also reported pain in her esophagus. GI Consult today. Pt is a DNR. Pt lives at the [facility] and her Paras lives in their home. Daughter and would like her to go to a SNF if needed but Pt wants to go home. CM requested PT/OT to to [facility] and OT recommends SNF. Discussed with family & Pt if there is a preference should she needs a SNF. They were given a Blue Book with SNF to choose from. CM available if needs arise. PLAN: Likely SNF Date Signed: 11/21/2018 03:45 PM Electronically Signed By:Liberty Camarena [facility] CM Progress Note CM Note CM Note Notes: Met with Pt and family. Pt continues to require IV Hydralazine for elevated B/p and went for an Endo procedure today. Daughter requested & sent Referrals to [facility], [facility] and [facility]. Saige Fan [facility] ([phone]) requests that we NOT talk to her mother about SNF's unless she is present. Daughter Saige present when we discussed options and Referrals sent. Palliative [facility] in to meet with Pt and Family this afternoon. Daughter and Paras feel in would be best if Lorri went to a SNF, but Pt disagrees. CM available if needs arise. PLAN: SNF TBD Date Signed: 11/22/2018 03:08 PM Electronically Signed By:Liberty Camarena [facility] CM Progress Note CM Note CM Note Notes: Met with patient's daughter Saige ) who is very involved with care decisions. Family is hopeful to get patient into [facility]. Shanelle from [facility] in to see patient and family regarding plan of care given patient's increasing weakness and symptom burden. Evaluations per PT and OT recommend a SNF as patient was living at independent living facility. Family and patient also met with oncology who reviewed plan of care and limited treatment options at this time. Family is agreeable to consider [facility] at this time as a bridge to [facility] . [facility] is able to accept. Patient likely ready to discharge tomorrow, 11/24/2018. Plan: To SNF Date Signed: 11/23/2018 03:20 PM Electronically Signed By:Jocelynn Avila RN Case Management Discharge Plan Note Case Management Discharge Discharge Order Complete? Answers: Yes Patient to Obtain Answers: Other Notes: [facility] Medications Transportation Arranged Answers: BELKIS Alvarado Case Management Transport Answers: Yes Form Complete Faxed Final Orders Answers: Yes Agency/Facility Transfer Answers: Yes Report Printed & Faxed to Receiving Agency Family Notified Answers: Yes Discharge Comments Notes: Medically cleared fr dc to SNF today via stretcher. 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 CM available should other needs arise. Date Signed: 11/24/2018 01:08 PM Electronically Signed By:Jocelynn Avila RN Intervention Information Intervention Type:*MORALEZ-Signed Date of Service:11/21/2018 11:14 AM Patient Type:Observation Staff Member:Velvet Knight Hours: Discipline: Severity: Comment: Intervention Type:*IM-Signed Date of Service:11/23/2018 03:42 PM Patient Type:Inpatient Staff Member:Edith Singleton Hours: Discipline: Severity: Comment:
--- NOTE | 2018-11-29 08:05 | CPEKG ---
Test Reason : OPEN Blood Pressure : / mmHG Vent. Rate : 056 BPM Atrial Rate : 056 BPM P-R Int : 162 ms QRS Dur : 088 ms QT Int : 491 ms P-R-T Axes : 047 -24 023 degrees QTc Int : 474 ms Sinus rhythm Consider left ventricular hypertrophy Confirmed by Eduardo Estrada ([id number]) on 11/29/2018 8:03:59 AM Referred By: Eduardo Estrada Confirmed By:Eduardo Estrada
== END 2018-11-24 14:50 | DRG 436 ==
LOC: EDBD → EDUNIT# → F1N 11-21 03:10 → OBSVTOIN 11-21 16:23
PROVIDERS: ADMIT Student in an Organized Health Care Education/Training Program; ATTEND Student in an Organized Health Care Education/Training Program
DX: C7B.02 Secondary carcinoid tumors of liver (principal); C7A.098 Malignant carcinoid tumors of other sites; E46 Unspecified protein-calorie malnutrition; K22.10 Ulcer of esophagus without bleeding; I16.0 Hypertensive urgency; E86.0 Dehydration; H40.9 Unspecified glaucoma
CPT/HCPCS: 84484-ER; 92526-GN; 92610-GN; 97116-GP; 97162-GP; 97165-GO; 97530-GO; 97535-GO; J0330; J0360; J1650; J2704; Q9961